=== PATIENT | female | born 1985 | race Caucasian/White ===

== ENCOUNTER → 2016-06-30 | Outpatient (CLI) | payer BC | END | disposition home or self-care (01) | LOC: MW.CHOBGYN 13:48 | PROVIDERS: ATTEND Obstetrics & Gynecology | DX: N93.8 Other specified abnormal uterine and vaginal bleeding (principal); R53.83 Other fatigue | CPT/HCPCS: 36415; 85014; 85018 ==

== ENCOUNTER 2017-04-29 12:10 | Inpatient (IN) | payer BC ==
[2017-04-29] MEDS ORDERED: Water For Irrigation,Sterile 1,000 ML Container IRR PRN ×2 (12:55)
[2017-04-29] MEDS ORDERED: Carboprost Tromethamine 250 MCG/1 ML Amp IM PRN ×2 (12:55)
[2017-04-29] MEDS ORDERED: Methylergonovine 0.2 MG/1 ML Amp IM PRN ×2 (12:55)
[2017-04-29] MEDS ORDERED: Lidocaine 1% 50 ML MDV INJECT PRN ×2 (12:55)
[2017-04-29] MEDS ORDERED: Misoprostol 200 MCG Tab PO PRN ×2 (12:55)
[2017-04-29] MEDS ORDERED: Sodium Chloride 0.9% 10 ML Syringe FLUSH PRN (12:55)
[2017-04-29] MEDS ORDERED: Sodium Chloride 0.9% 2.5 ML Syringe FLUSH PRN (12:55)
[2017-04-29] MEDS ORDERED: Nalbuphine 10 MG/1 ML Vial IVPUSH PRN ×2 (12:55)
[2017-04-29] MEDS ORDERED: Butorphanol 1 MG/ML SDV IVPUSH PRN (12:55)
[2017-04-29] MEDS ORDERED: Lactated Ringers 1,000 ML IV SCH (13:00)
[2017-04-29] MEDS ORDERED: Oxytocin/0.9 % Sodium Chloride 30 UNIT/500 ML BAG IV SCH (13:00)
[2017-04-29] MEDS ORDERED: Terbutaline 1 MG/ML SDV SUBCUT PRN (13:20)
[2017-04-29] MEDS ORDERED: Misoprostol 25 MCG (1/4 of 100 MCG) Tab PO ONE (13:22)
--- NOTE | 2017-04-29 13:38 | PCM.LDHP ---
L&D History of Present Illness - General Date of Service: 04/29/17 Admit Problem/Dx: Patient Status Order with Admit Dx/Problem 04/29/17 12:22 Patient Status [ADT] Routine 04/29/17 12:55 Patient Status [ADT] Routine Admission Diagnosis/Problem Admission Diagnosis/Problem Source of Information: Patient History Limitations: Reports: No Limitations - History of Present Illness Improves with: Reports: None Worsens with: Reports: None Associated Symptoms: Reports: N - Related Data Allergies/Adverse Reactions: Allergies Allergy/AdvReac Type Severity Reaction Status Date / Time No Known Allergies Allergy Verified 01/20/17 11:56 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: Psychiatric History: Reports: Depression Endocrine/Metabolic History: Reports: Other (See Below) Other Endocrine/Metabolic History: hypoglycemia Social & Family History - Tobacco Use Smoking Status *Q: Never Smoker Second Hand Smoke Exposure: No H&P Review of Systems - Review of Systems: Review Of Systems: See Below General: Reports: No Symptoms HEENT: Reports: No Symptoms Pulmonary: Reports: No Symptoms Cardiovascular: Reports: No Symptoms Gastrointestinal: Reports: No Symptoms Genitourinary: Reports: No Symptoms Musculoskeletal: Reports: No Symptoms Skin: Reports: No Symptoms Psychiatric: Reports: No Symptoms Neurological: Reports: No Symptoms Hematologic/Lymphatic: Reports: No Symptoms Immunologic: Reports: No Symptoms L&D Exam - Exam Exam: See Below - Vital Signs Weight: 98.43 kg - OB Specific Fundal Height In cm: 37 Contraction Intensity: Mild Movement: Active Heart Tones: Present Presentation: Vertex - Canela Score Canela Score Cervix Position: Midposition Canela Score Consistency: Soft Canela Score Effacement: 51-70% Canela Score Dilation: 1-2 cm Canela Score 's Station: -3 Canela Score Total: 6 - Exam General: Alert, Oriented HEENT: PERRLA, Conjunctiva Clear, EACs Clear, EOMI, Hearing Intact, Mucosa Moist & [place], Nares Patent, Normal Nasal Septum, Posterior Pharynx Clear, TMs Clear Neck: Supple, Trachea Midline Lungs: Clear to Auscultation, Normal Respiratory Effort Cardiovascular: Regular Rate, Regular Rhythm GI/Abdominal Exam: Normal Bowel Sounds, Soft, Non-Tender, No Organomegaly, No Distention, No Abnormal Bruit, No Mass, Pelvis Stable Rectal Exam: Normal Exam, Normal Rectal Tone Genitourinary: Normal external exam, Normal bimanual exam, Normal speculum exam Back Exam: Normal Inspection, Full Range of Motion Extremities: Normal Inspection, Normal Range of Motion, Non-Tender, No Pedal Edema, Normal Capillary Refill Skin: Warm, Dry, Intact Neurological: Cranial Nerves Intact, Reflexes Equal Bilateral Psychiatric: Alert, Normal Affect, Normal Mood - Patient Data Lab Results Last 24 hrs: Laboratory Results - last 24 hr 04/29/17 Range/Units 13:12 WBC 8.71 (4.0-11.0) K/uL RBC 3.95 L (4.30-5.90) M/uL Hgb 13.2 (12.0-16.0) g/dL Hct 36.7 (36.0-46.0) % MCV 92.9 (80.0-98.0) fL MCH 33.4 H (27.0-32.0) pg MCHC 36.0 (31.0-37.0) g/dL RDW Std Deviation 43.8 (28.0-62.0) fl RDW Coeff of Kadie 13 (11.0-15.0) % Plt Count 106 L (150-400) K/uL MPV 11.30 (7.40-12.00) fL Nucleated RBC % 0.0 /100WBC Nucleated RBCs # 0 K/uL Result Diagrams: 04/29/17 13:12 Problem List Initiated/Reviewed/Updated: Yes Orders Last 24hrs: Active Orders 24 hr Category Date Time Status Patient Status [ADT] Routine ADT 04/29/17 12:55 Active Bedrest Bathroom Privileges [RC] ASDIRECTED Care 04/29/17 13:20 Active Communication Order [RC] ASDIRECTED Care 04/29/17 13:20 Active Communication Order [RC] ASDIRECTED Care 04/29/17 13:20 Active Communication Order [RC] ASDIRECTED Care 04/29/17 13:20 Active Heart Tones [RC] CONTINUOUS Care 04/29/17 12:55 Inactive Heart Tones [RC] CONTINUOUS Care 04/29/17 12:55 Inactive Non Stress Test [RC] PER UNIT ROUTINE Care 04/29/17 12:22 Inactive Non Stress Test [RC] PER UNIT ROUTINE Care 04/29/17 12:55 Active Non Stress Test [RC] PER UNIT ROUTINE Care 04/29/17 12:55 Inactive May Shower [RC] ASDIRECTED Care 04/29/17 12:55 Active May Shower [RC] ASDIRECTED Care 04/29/17 12:55 Inactive Notify Provider [RC] PRN Care 04/29/17 12:55 Active Notify Provider [RC] PRN Care 04/29/17 12:55 Inactive Notify Provider [RC] PRN Care 04/29/17 13:20 Active Notify Provider [RC] STAT Care 04/29/17 13:20 Active Oxygen Therapy [RC] ASDIRECTED Care 04/29/17 13:20 Active Up ad Latricia [RC] ASDIRECTED Care 04/29/17 12:22 Inactive Up ad Latricia [RC] ASDIRECTED Care 04/29/17 12:55 Active Up ad Latricia [RC] ASDIRECTED Care 04/29/17 12:55 Inactive Vaginal Exam [RC] Click to Edit Care 04/29/17 12:22 Inactive Vaginal Exam [RC] PRN Care 04/29/17 12:55 Active Vaginal Exam [RC] PRN Care 04/29/17 12:55 Inactive Vaginal Exam [RC] PRN Care 04/29/17 13:20 Active Vital Signs [RC] PER UNIT ROUTINE Care 04/29/17 12:22 Inactive Vital Signs [RC] PER UNIT ROUTINE Care 04/29/17 12:55 Active Vital Signs [RC] PER UNIT ROUTINE Care 04/29/17 12:55 Inactive Vital Signs [RC] PER UNIT ROUTINE Care 04/29/17 13:20 Active Regular Diet [DIET] Diet 04/29/17 Dinner Active TYPE AND SCREEN [BBK] Routine Lab 04/29/17 13:12 Received Butorphanol [Stadol] Med 04/29/17 12:55 Active 1 mg IVPUSH Q1H PRN Carboprost Tromethamine [Hemabate DS] Med 04/29/17 12:55 Active 250 mcg IM ASDIRECTED PRN Lactated Ringers [Ringers, Lactated] 1,000 ml Med 04/29/17 13:00 Active IV ASDIRECTED Lidocaine 1% [Xylocaine 1%] Med 04/29/17 12:55 Active 50 ml INJECT .ONCE PRN Methylergonovine [Methergine] Med 04/29/17 12:55 Active 0.2 mg IM ASDIRECTED PRN Misoprostol [Cytotec] Med 04/29/17 12:55 Active 200 mcg PO .ONCE PRN Misoprostol [Cytotec] Med 04/29/17 13:30 Active 25 mcg VAG .ONCE Misoprostol [Cytotec] Med 04/29/17 13:20 Active 25 mcg VAG Q4H PRN Nalbuphine [Nubain] Med 04/29/17 12:55 Active 10 mg IVPUSH Q1H PRN Oxytocin/0.9 % Sodium Chloride [Oxytocin 30 Unit/500 ML Med 04/29/17 13:00 Active -NS] 30 unit in 500 ml IV TITRATE Sodium Chloride 0.9% [Saline Flush] Med 04/29/17 12:55 Active 10 ml FLUSH ASDIRECTED PRN Terbutaline [Brethine] Med 04/29/17 13:20 Active 0.25 mg SUBCUT ASDIRECTED PRN Water For Irrigation,Sterile [Sterile Water for Med 04/29/17 12:55 Active Irrigation] 1,000 ml IRR ASDIRECTED PRN Scalp Electrode [WOMSER] Per Unit Routine Oth 04/29/17 12:55 Ordered Peripheral IV Insertion Adult [OM.PC] Routine Oth 04/29/17 12:55 Ordered Resuscitation Status Routine Resus Stat 04/29/17 12:22 Ordered Medication Orders Butorphanol Tartrate (Stadol) 1 mg IVPUSH Q1H PRN PRN Reason: Pain Carboprost Tromethamine (Hemabate Ds) 250 mcg IM ASDIRECTED PRN PRN Reason: Post Hemorrhage Oxytocin/Sodium Chloride (Oxytocin 30 Unit/500 Ml-Ns) 30 unit in 500 mls @ 500 mls/hr IV TITRATE REINA Lactated Ringer's (Ringers, Lactated) 1,000 mls @ 150 mls/hr IV ASDIRECTED REINA Lidocaine HCl (Xylocaine 1%) 50 ml INJECT .ONCE PRN PRN Reason: Laceration repair Methylergonovine Maleate (Methergine) 0.2 mg IM ASDIRECTED PRN PRN Reason: Post Hemorrhage Misoprostol (Cytotec) 200 mcg PO .ONCE PRN PRN Reason: Post Hemorrhage Misoprostol (Cytotec) 25 mcg VAG .ONCE REINA Misoprostol (Cytotec) 25 mcg VAG Q4H PRN PRN Reason: Cervical Ripening Nalbuphine HCl (Nubain) 10 mg IVPUSH Q1H PRN PRN Reason: Pain (severe 7-10) Sodium Chloride (Saline Flush) 10 ml FLUSH ASDIRECTED PRN PRN Reason: Keep Vein Open Sterile Water (Sterile Water For Irrigation) 1,000 ml IRR ASDIRECTED PRN PRN Reason: delivery Terbutaline Sulfate (Brethine) 0.25 mg SUBCUT ASDIRECTED PRN PRN Reason: Tacysystole Assessment/Plan Comment:: Term GPS is status is negative admitted with that confirmed spontaneous rupture of membrane at 8:00 this morning. Cervical examination she is 1 cm 70% vertex and -3 the presenting position is confirmed by ultrasound. We will admit the patient and we are start induction with Cytotec in accordance with the protocol
[2017-04-29] MEDS: Misoprostol 25 MCG (1/4 of 100 MCG) Tab VAG SCH (13:49)
[2017-04-29] MEDS: Misoprostol 25 MCG (1/4 of 100 MCG) Tab PO PRN ×2 (18:36→23:04)
[2017-04-29] MEDS: Misoprostol 25 MCG (1/4 of 100 MCG) Tab VAG PRN ×2 (18:36→23:05)
[2017-04-30] MEDS: Butorphanol 1 MG/ML SDV IVPUSH PRN ×2 (01:48→03:35)
[2017-04-30] MEDS: Misoprostol 25 MCG (1/4 of 100 MCG) Tab PO PRN (02:57)
[2017-04-30] MEDS: Misoprostol 25 MCG (1/4 of 100 MCG) Tab VAG SCH (02:57)
[2017-04-30] MEDS: Lactated Ringers 1,000 ML IV SCH ×3 (07:26→16:32)
[2017-04-30] MEDS ORDERED: Ondansetron 4 MG/2 ML SDV IVPUSH ONE (07:26)
[2017-04-30] MEDS ORDERED: Oxytocin/0.9 % Sodium Chloride 30 UNIT/500 ML BAG IV SCH (07:30)
[2017-04-30] MEDS ORDERED: fentaNYL 100 MCG/2 ML SDV ONE ×3 (07:41→17:42)
[2017-04-30] MEDS ORDERED: Ropivacaine 100 ML ONE (07:42)
--- NOTE | 2017-04-30 07:55 | PCM.PREANE ---
Preanesthetic Assessment - Anesthesia/Transfusion/Family Hx Anesthesia History: Prior Anesthesia Without Reaction Family History of Anesthesia Reaction: No Transfusion History: No Prior Transfusion(s) - Review of Systems General: No Symptoms Pulmonary: No Symptoms Cardiovascular: No Symptoms Gastrointestinal: No Symptoms Neurological: No Symptoms Other: Reports: None - Physical Assessment NPO Status Date: 04/30/17 NPO Status Time: 07:51 (sips/chips) Blood Pressure: 120/86 Height: 5 ft 8.5 in Weight: 217 lb 0.015 oz ASA Class: 2 Mental Status: Alert & Oriented x3 Airway Class: Mallampati = 2 Dentition: Reports: Normal Dentition Thyro-Mental Finger Breadths: 3 Mouth Opening Finger Breadths: 3 ROM/Head Extension: Full Lungs: Clear to Auscultation, Normal Respiratory Effort Cardiovascular: Regular Rate, Regular Rhythm - Lab Values: Laboratory Last Values WBC 8.71 K/uL (4.0-11.0) 04/29/17 13:12 RBC 3.95 M/uL (4.30-5.90) L 04/29/17 13:12 Hgb 13.2 g/dL (12.0-16.0) 04/29/17 13:12 Hct 36.7 % (36.0-46.0) 04/29/17 13:12 MCV 92.9 fL (80.0-98.0) 04/29/17 13:12 MCH 33.4 pg (27.0-32.0) H 04/29/17 13:12 MCHC 36.0 g/dL (31.0-37.0) 04/29/17 13:12 RDW Std Deviation 43.8 fl (28.0-62.0) 04/29/17 13:12 RDW Coeff of Kadie 13 % (11.0-15.0) 04/29/17 13:12 Plt Count 106 K/uL (150-400) L 04/29/17 13:12 MPV 11.30 fL (7.40-12.00) 04/29/17 13:12 Nucleated RBC % 0.0 /100WBC 04/29/17 13:12 Nucleated RBCs # 0 K/uL 04/29/17 13:12 Blood Type O POSITIVE 04/29/17 13:12 Antibody Screen NEGATIVE 04/29/17 13:12 - Allergies Allergies/Adverse Reactions: Allergies Allergy/AdvReac Type Severity Reaction Status Date / Time No Known Allergies Allergy Verified 01/20/17 11:56 - Blood Blood Available: No Product(s) Available: None - Anesthesia Plan Free Text/Narrative:: Labor Epidural - awaiting a repeated platelet count - Acknowledgements Anesthesia Type Planned: Epidural Pt an Appropriate Candidate for the Planned Anesthesia: Yes Alternatives and Risks of Anesthesia Discussed w Pt/Guardian: Yes Pt/Guardian Understands and Agrees with Anesthesia Plan: Yes 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: Psychiatric History: Reports: Depression Endocrine/Metabolic History: Reports: Other (See Below) Other Endocrine/Metabolic History: hypoglycemia Hematologic History: Reports: Idiopathic Thrombocytopenia (low platelets thru 106k yesterday - rechecking prior to epidural) - SUBSTANCE USE Smoking Status *Q: Never Smoker Second Hand Smoke Exposure: No - CURRENT (IN HOUSE) MEDS Current Meds: Current Medications Butorphanol Tartrate (Stadol) 1 mg IVPUSH Q1H PRN PRN Reason: Pain Last Admin: 04/30/17 03:35 Dose: 1 mg Carboprost Tromethamine (Hemabate Ds) 250 mcg IM ASDIRECTED PRN PRN Reason: Post Hemorrhage Oxytocin/Sodium Chloride (Oxytocin 30 Unit/500 Ml-Ns) 30 unit in 500 mls @ 500 mls/hr IV TITRATE REINA Lactated Ringer's (Ringers, Lactated) 1,000 mls @ 150 mls/hr IV ASDIRECTED REINA Last Admin: 04/30/17 07:26 Dose: 999 mls/hr Oxytocin/Sodium Chloride (Oxytocin 30 Unit/500 Ml-Ns) 30 unit in 500 mls @ 2 mls/hr IV TITRATE REINA; 2 MUNITS/MIN PRN Reason: Protocol Lidocaine HCl (Xylocaine 1%) 50 ml INJECT .ONCE PRN PRN Reason: Laceration repair Methylergonovine Maleate (Methergine) 0.2 mg IM ASDIRECTED PRN PRN Reason: Post Hemorrhage Misoprostol (Cytotec) 200 mcg PO .ONCE PRN PRN Reason: Post Hemorrhage Misoprostol (Cytotec) 25 mcg VAG .ONCE REINA Last Admin: 04/30/17 02:57 Dose: 25 mcg Misoprostol (Cytotec) 25 mcg VAG Q4H PRN PRN Reason: Cervical Ripening Last Admin: 04/29/17 23:05 Dose: 25 mcg Misoprostol (Cytotec) 25 mcg PO Q4H PRN PRN Reason: Other Last Admin: 04/30/17 02:57 Dose: 25 mcg Nalbuphine HCl (Nubain) 10 mg IVPUSH Q1H PRN PRN Reason: Pain (severe 7-10) Sodium Chloride (Saline Flush) 10 ml FLUSH ASDIRECTED PRN PRN Reason: Keep Vein Open Sterile Water (Sterile Water For Irrigation) 1,000 ml IRR ASDIRECTED PRN PRN Reason: delivery Terbutaline Sulfate (Brethine) 0.25 mg SUBCUT ASDIRECTED PRN PRN Reason: Tacysystole Discontinued Medications Butorphanol Tartrate (Stadol) 1 mg IVPUSH Q1H PRN PRN Reason: Pain Carboprost Tromethamine (Hemabate Ds) 250 mcg IM ASDIRECTED PRN PRN Reason: Post Hemorrhage Fentanyl (Sublimaze) Confirm Administered Dose 100 mcg .ROUTE .STK-MED ONE Stop: 04/30/17 07:42 Lactated Ringer's (Ringers, Lactated) 1,000 mls @ 150 mls/hr IV ASDIRECTED REINA Ropivacaine (Naropin 0.2%) Confirm Administered Dose 100 mls @ as directed .ROUTE .STK-MED ONE Stop: 04/30/17 07:43 Lidocaine HCl (Xylocaine 1%) 50 ml INJECT .ONCE PRN PRN Reason: Laceration repair Methylergonovine Maleate (Methergine) 0.2 mg IM ASDIRECTED PRN PRN Reason: Post Hemorrhage Misoprostol (Cytotec) 200 mcg PO .ONCE PRN PRN Reason: Post Hemorrhage Misoprostol (Cytotec) 25 mcg PO ONETIME ONE Stop: 04/29/17 13:23 Last Admin: 04/29/17 13:46 Dose: 25 mcg Nalbuphine HCl (Nubain) 10 mg IVPUSH Q1H PRN PRN Reason: Pain (severe 7-10) Ondansetron HCl (Zofran) 4 mg IVPUSH ONETIME ONE Stop: 04/30/17 07:27 Sodium Chloride (Saline Flush) 2.5 ml FLUSH ASDIRECTED PRN PRN Reason: Keep Vein Open Sterile Water (Sterile Water For Irrigation) 1,000 ml IRR ASDIRECTED PRN PRN Reason: delivery
[2017-04-30] MEDS ORDERED: Ampicillin 2 GM in Sodium Chloride 0.9% 100 ML IV ONE (08:30)
[2017-04-30] MEDS: Ampicillin 1 GM in Sodium Chloride 0.9% 50 ML IV SCH ×2 (12:31→16:31)
[2017-04-30] MEDS ORDERED: Ondansetron 4 MG/2 ML SDV IVPUSH PRN ×2 (15:18→18:44)
[2017-04-30] MEDS ORDERED: Acetaminophen 500 MG Tab PO ONE (15:20)
[2017-04-30] MEDS ORDERED: Morphine PF 1 MG/ML Amp ONE (15:24)
[2017-04-30] MEDS ORDERED: Bupivacaine 0.5% 10 ML SDV ONE ×2 (17:30→17:43)
[2017-04-30] MEDS ORDERED: Oxytocin/0.9 % Sodium Chloride 30 UNIT/500 ML BAG ONE (17:30)
[2017-04-30] MEDS ORDERED: Phenylephrine/Normal Saline 100 MCG/ML 10 ML Syringe ONE (18:05)
[2017-04-30] MEDS ORDERED: Ondansetron 4 MG/2 ML SDV ONE (18:30)
[2017-04-30] MEDS ORDERED: Octyl 2-Cyanoacrylate 1 Tube ONE (18:33)
[2017-04-30] MEDS ORDERED: Lanolin 100% Cream 7 GM Tube TOP PRN (18:44)
[2017-04-30] MEDS ORDERED: Acetaminophen/oxyCODONE 325-5 MG Tab PO PRN ×3 (18:44→19:12)
[2017-04-30] MEDS ORDERED: Bisacodyl 10 MG Supp RECTAL PRN (18:44)
[2017-04-30] MEDS ORDERED: diphenhydrAMINE 50 MG/ML SDV IVPUSH PRN (18:44)
[2017-04-30] MEDS ORDERED: Lactated Ringers 1,000 ML IV SCH (18:45)
--- NOTE | 2017-04-30 18:48 | PCM.OPNOTE ---
- General Post-Op/Procedure Note Date of Surgery/Procedure: 04/30/17 Operative Procedure(s): Primary C/section Pre Op Diagnosis: IUP 38+5 SROM faild induction Post-Op Diagnosis: Same Anesthesia Technique: Epidural Primary Surgeon: Colby Aguilar EBL in mLs: 650 Complications: None Condition: Good
[2017-04-30] MEDS ORDERED: Naloxone 0.4 MG/ML Syringe IVPUSH PRN (19:12)
[2017-04-30] MEDS ORDERED: Nalbuphine 10 MG/1 ML Vial IVPUSH PRN (19:12)
[2017-04-30] MEDS: Ketorolac 30 MG/ML SDV IVPUSH SCH (19:23)
--- NOTE | 2017-04-30 19:34 | PCM.POSTAN ---
POST ANESTHESIA ASSESSMENT - MENTAL STATUS Mental Status: Alert, Oriented - VITAL SIGNS Pulse Rate: 91 SaO2: 98 Resp Rate: 17 Blood Pressure: 107/53 - RESPIRATORY Respiratory Status: Respiratory Rate WNL, Airway Patent, O2 Saturation Stable - CARDIOVASCULAR CV Status: Pulse Rate WNL, Blood Pressure Stable - GASTROINTESTINAL GI Status: No Symptoms - PAIN Pain Score: 0 (Epidural Level still T7, but no tingling in hands or difficulty breathing) - POST OP HYDRATION Hydration Status: Adequate & Stable - OBSERVATIONS Free Text/Narrative:: Pt's epidural did get high during the case despite a low dose. The level has resolved down to T7 and pt has no complaints at this time. VSS.
[2017-04-30] MEDS: Docusate Sodium 100 MG Cap PO SCH (22:15)
--- NOTE | 2017-04-30 22:45 | OR ---
SURGEON: Colby Aguilar MD DATE OF PROCEDURE: PREOPERATIVE DIAGNOSIS: Intrauterine 38+ 5, spontaneous rupture of the membrane, failed induction. POSTOPERATIVE DIAGNOSIS: Intrauterine 38+ 5, spontaneous rupture of the membrane, failed induction. OPERATION PERFORMED: Primary low transverse section. SAILOR: OR tech. WARD NURSE: Dr. Carcamo. ANESTHESIA: Epidural, Narcisa Mccurdy and Dr. Swan. ESTIMATED BLOOD LOSS: 650 mL. COMPLICATIONS: None. FINDINGS: Female fetus. score reported to be 8 and 9. Weight is not available. Normal uterus, tubes, and ovaries. INDICATION FOR SURGERY: This patient is 31. She is primigravida. She is followed in our clinic primarily by me. She is admitted with spontaneous rupture of membrane. At the time of admission, she was 1 cm dilated. She is induced with Cytotec and Pitocin. She did not respond well to the induction, and after 36 hours of induction, the patient was still about 4 cm vertex and -3. The patient started spiking fever, tachycardia. Decision is made to do primary low transverse section. PROCEDURE IN DETAIL: The patient was brought to the OR, properly identified with a Gomez catheter in the bladder. An adequate level of epidural anesthesia. A low transverse Pfannenstiel skin incision was done. Sophie's fascia rectus fascia was opened in direction of the incision. The 2 recti muscles were . Peritoneal cavity was entered. Bladder flap was raised in the usual manner pushing the bladder away from the lower uterine segment. Low transverse uterine incision was done and extended manually with the hand and fetus was in a vertex position, delivered without any problem. Dr. Carcamo, the burn nurse, was present at the delivery. The fetus cried immediately. score reported to be 8 and 9. The placenta delivered spontaneous, complete, and intact and repair of the lower uterine segment was done with 2-0 Vicryl continuous interlocking in 2 layers. Reperitonealization done with 3-0 Vicryl continuous and then the peritoneal cavity evacuated completely from all blood and blood clot and closed with 3-0 Vicryl continuous. The rectus fascia closed with #1 PDS double strand continuous. The Sophie's fascia with 3-0 Vicryl continuous. Skin closed with skin clips, Insorb, and Dermabond. Instrument and sponge count were correct. The patient tolerated the procedure well, went to recovery room in stable general condition. EDIN / TRAE /[id number]
[2017-05-01] MEDS: Ketorolac 30 MG/ML SDV IVPUSH SCH ×4 (00:32→18:11)
[2017-05-01] MEDS: Ampicillin 1 GM in Sodium Chloride 0.9% 50 ML IV SCH ×5 (02:17→18:11)
--- NOTE | 2017-05-01 07:47 | PCM48HPAN ---
Post Anesthesia Note - EVALUATION WITHIN 48HRS OF ANESTHETIC Vital Signs in Normal Range: Yes Patient Participated in Evaluation: Yes Respiratory Function Stable: Yes Airway Patent: Yes Cardiovascular Function Stable: Yes Hydration Status Stable: Yes Pain Control Satisfactory: Yes Nausea and Vomiting Control Satisfactory: Yes Mental Status Recovered: Yes - COMMENTS/OBSERVATIONS Free Text/Narrative:: Pt sitting up in bed with no complaints this AM. Pt did have one episode of nausea and decreased BP last night, but she states it was associated with sitting up to breastfeed and resolved shortly after. No other problems after that incident. Pt did say that her sister had a very similar experience as far as epidural dosed for that went high - presumably something anatomic that makes the space smaller than normal, therefore a normal dose travels much higher? Pt encouraged to inform anesthesia for any future anesthesia procedures.
--- NOTE | 2017-05-01 09:10 | PCM.SURGPN ---
- General Info Date of Service: 05/01/17 POD#: 1 Functional Status: Reports: Pain Controlled - Review of Systems General: Reports: No Symptoms HEENT: Reports: No Symptoms Pulmonary: Reports: No Symptoms Cardiovascular: Reports: No Symptoms Gastrointestinal: Reports: No Symptoms Genitourinary: Reports: No Symptoms Musculoskeletal: Reports: No Symptoms Skin: Reports: No Symptoms Neurological: Reports: No Symptoms Psychiatric: Reports: No Symptoms - Patient Data Vitals - Most Recent: Last Vital Signs Temp 36.2 C 05/01/17 04:35 Pulse 83 05/01/17 04:35 Resp 18 05/01/17 06:29 BP 112/70 05/01/17 04:35 Pulse Ox 99 05/01/17 06:29 Weight - Most Recent: 98.43 kg I&O - Last 24 Hours: Intake & Output 04/30/17 05/01/17 05/01/17 22:59 06:59 14:59 Intake Total 2400 Output Total 700 Balance 1700 Lab Results Last 24 Hrs: Laboratory Results - last 24 hr 05/01/17 Range/Units 06:17 Hgb 9.4 L (12.0-16.0) g/dL Hct 26.1 L (36.0-46.0) % Med Orders - Current: Current Medications Bisacodyl (Dulcolax) 10 mg RECTAL .ONCE PRN PRN Reason: Constipation Butorphanol Tartrate (Stadol) 1 mg IVPUSH Q1H PRN PRN Reason: Pain Last Admin: 04/30/17 03:35 Dose: 1 mg Carboprost Tromethamine (Hemabate Ds) 250 mcg IM ASDIRECTED PRN PRN Reason: Post Hemorrhage Diphenhydramine HCl (Benadryl) 25 mg IVPUSH Q6H PRN PRN Reason: Itching or Nausea Last Admin: 04/30/17 21:08 Dose: 25 mg Docusate Sodium (Colace) 100 mg PO BID [facility] Last Admin: 04/30/17 22:15 Dose: Not Given Emollient Ointment (Lansinoh Hpa) 0 gm TOP ASDIRECTED PRN PRN Reason: Sore Nipples Oxytocin/Sodium Chloride (Oxytocin 30 Unit/500 Ml-Ns) 30 unit in 500 mls @ 500 mls/hr IV TITRATE [facility] Lactated Ringer's (Ringers, Lactated) 1,000 mls @ 150 mls/hr IV ASDIRECTED [facility] Last Admin: 04/30/17 16:32 Dose: 150 mls/hr Oxytocin/Sodium Chloride (Oxytocin 30 Unit/500 Ml-Ns) 30 unit in 500 mls @ 2 mls/hr IV TITRATE [facility]; 2 MUNITS/MIN PRN Reason: Protocol Last Infusion: 04/30/17 14:18 Dose: 16 munits/min, 16 mls/hr Ampicillin Sodium 1 gm/ Sodium (Chloride) 50 mls @ 100 mls/hr IV Q4H [facility] Last Admin: 05/01/17 07:18 Dose: Not Given Lactated Ringer's (Ringers, Lactated) 1,000 mls @ 125 mls/hr IV ASDIRECTED [facility] Ibuprofen (Motrin) 800 mg PO Q8H PRN PRN Reason: mild pain or fever Ketorolac Tromethamine (Toradol) 30 mg IVPUSH Q6H [facility] Stop: 05/01/17 18:46 Last Admin: 05/01/17 06:29 Dose: 30 mg Lidocaine HCl (Xylocaine 1%) 50 ml INJECT .ONCE PRN PRN Reason: Laceration repair Methylergonovine Maleate (Methergine) 0.2 mg IM ASDIRECTED PRN PRN Reason: Post Hemorrhage Misoprostol (Cytotec) 200 mcg PO .ONCE PRN PRN Reason: Post Hemorrhage Misoprostol (Cytotec) 25 mcg VAG .ONCE [facility] Last Admin: 04/30/17 02:57 Dose: 25 mcg Misoprostol (Cytotec) 25 mcg VAG Q4H PRN PRN Reason: Cervical Ripening Last Admin: 04/29/17 23:05 Dose: 25 mcg Misoprostol (Cytotec) 25 mcg PO Q4H PRN PRN Reason: Other Last Admin: 04/30/17 02:57 Dose: 25 mcg Nalbuphine HCl (Nubain) 10 mg IVPUSH Q1H PRN PRN Reason: Pain (severe 7-10) Nalbuphine HCl (Nubain) 2.5 mg IVPUSH Q3H PRN PRN Reason: Pruritis Stop: 05/01/17 19:14 Naloxone HCl (Narcan) 0.1 mg IVPUSH ONETIME PRN PRN Reason: RR<6 WITH STIMULATION Stop: 05/01/17 19:14 Ondansetron HCl (Zofran) 4 mg IVPUSH .ONETIME PRN PRN Reason: Nausea Last Admin: 04/30/17 15:40 Dose: 4 mg Ondansetron HCl (Zofran) 4 mg IVPUSH Q4H PRN PRN Reason: Nausea/Vomiting Oxycodone/Acetaminophen (Percocet 325-5 Mg) 1 tab PO Q4H PRN PRN Reason: Pain (moderate 4-6) Oxycodone/Acetaminophen (Percocet 325-5 Mg) 2 tab PO Q4H PRN PRN Reason: Pain (moderate 4-6) Oxycodone/Acetaminophen (Percocet 325-5 Mg) 1 tab PO Q4H PRN PRN Reason: Breakthrough Pain Sodium Chloride (Saline Flush) 10 ml FLUSH ASDIRECTED PRN PRN Reason: Keep Vein Open Sterile Water (Sterile Water For Irrigation) 1,000 ml IRR ASDIRECTED PRN PRN Reason: delivery Terbutaline Sulfate (Brethine) 0.25 mg SUBCUT ASDIRECTED PRN PRN Reason: Tacysystole Discontinued Medications Acetaminophen (Tylenol Extra Strength) 1,000 mg PO ONETIME ONE Stop: 04/30/17 15:21 Last Admin: 04/30/17 15:40 Dose: 1,000 mg Bupivacaine HCl (Sensorcaine-Mpf 0.5%) Confirm Administered Dose 20 ml .ROUTE .STK-MED ONE Stop: 04/30/17 17:31 Last Admin: 05/01/17 07:17 Dose: Not Given Bupivacaine HCl (Sensorcaine-Mpf 0.5%) Confirm Administered Dose 20 ml .ROUTE .STK-MED ONE Stop: 04/30/17 17:44 Last Admin: 05/01/17 07:18 Dose: Not Given Butorphanol Tartrate (Stadol) 1 mg IVPUSH Q1H PRN PRN Reason: Pain Carboprost Tromethamine (Hemabate Ds) 250 mcg IM ASDIRECTED PRN PRN Reason: Post Hemorrhage Fentanyl (Sublimaze) Confirm Administered Dose 100 mcg .ROUTE .STK-MED ONE Stop: 04/30/17 07:42 Last Admin: 04/30/17 08:52 Dose: Not Given Fentanyl (Sublimaze) Confirm Administered Dose 100 mcg .ROUTE .STK-MED ONE Stop: 04/30/17 17:32 Last Admin: 05/01/17 07:17 Dose: Not Given Fentanyl (Sublimaze) Confirm Administered Dose 100 mcg .ROUTE .STK-MED ONE Stop: 04/30/17 17:43 Last Admin: 05/01/17 07:17 Dose: Not Given Lactated Ringer's (Ringers, Lactated) 1,000 mls @ 150 mls/hr IV ASDIRECTED [facility] Ropivacaine (Naropin 0.2%) Confirm Administered Dose 100 mls @ as directed .ROUTE .[facility]-MED ONE Stop: 04/30/17 07:43 Last Admin: 04/30/17 08:52 Dose: Not Given Ampicillin Sodium 2 gm/ Sodium (Chloride) 100 mls @ 200 mls/hr IV ONETIME ONE Stop: 04/30/17 08:59 Last Admin: 04/30/17 08:29 Dose: 200 mls/hr Oxytocin/Sodium Chloride (Oxytocin 30 Unit/500 Ml-Ns) Confirm Administered Dose 30 unit in 500 mls @ as directed .ROUTE .[facility] ONE Stop: 04/30/17 17:31 Last Admin: 05/01/17 07:17 Dose: Not Given Lidocaine HCl (Xylocaine 1%) 50 ml INJECT .ONCE PRN PRN Reason: Laceration repair Methylergonovine Maleate (Methergine) 0.2 mg IM ASDIRECTED PRN PRN Reason: Post Hemorrhage Misoprostol (Cytotec) 200 mcg PO .ONCE PRN PRN Reason: Post Hemorrhage Misoprostol (Cytotec) 25 mcg PO ONETIME ONE Stop: 04/29/17 13:23 Last Admin: 04/29/17 13:46 Dose: 25 mcg Morphine Sulfate (Duramorph Pf) Confirm Administered Dose 1 mg .ROUTE .STK-MED ONE Stop: 04/30/17 15:25 Nalbuphine HCl (Nubain) 10 mg IVPUSH Q1H PRN PRN Reason: Pain (severe 7-10) Octyl Cyanoacrylate (Dermabond Advance) Confirm Administered Dose 1 applic .ROUTE .STK-MED ONE Stop: 04/30/17 18:34 Ondansetron HCl (Zofran) 4 mg IVPUSH ONETIME ONE Stop: 04/30/17 07:27 Last Admin: 04/30/17 08:03 Dose: 4 mg Ondansetron HCl (Zofran) Confirm Administered Dose 4 mg .ROUTE .STK-MED ONE Stop: 04/30/17 18:31 Phenylephrine HCl (Phenylephrine In Ns 100 Mcg/Ml) Confirm Administered Dose 1 mg .ROUTE .STK-MED ONE Stop: 04/30/17 18:06 Sodium Chloride (Saline Flush) 2.5 ml FLUSH ASDIRECTED PRN PRN Reason: Keep Vein Open Sterile Water (Sterile Water For Irrigation) 1,000 ml IRR ASDIRECTED PRN PRN Reason: delivery - Exam Wound/Incisions: Healing Well General: Alert, Oriented HEENT: Pupils Equal Neck: Supple Lungs: Clear to Auscultation, Normal Respiratory Effort Cardiovascular: Regular Rate, Regular Rhythm GI/Abdominal Exam: Normal Bowel Sounds, Soft, Non-Tender, No Organomegaly, No Distention, No Abnormal Bruit, No Mass, Pelvis Stable Extremities: Normal Inspection, Normal Range of Motion, Non-Tender, No Pedal Edema, Normal Capillary Refill Skin: Warm, Dry, Intact Neurological: No New Focal Deficit Psy/Mental Status: Alert, Normal Affect, Normal Mood - Problem List Review Problem List Initiated/Reviewed/Updated: Yes - My Orders Last 24 Hours: Active Orders 24 hr Category Date Time Status Patient Status [ADT] Routine ADT 04/30/17 18:44 Active Ambulate [RC] PER UNIT ROUTINE Care 04/30/17 18:44 Active Antiembolic Devices [RC] PER UNIT ROUTINE Care 04/30/17 18:45 Active Bradycardia-Neuroaxis [employer] [RC] ROUTINE Care 04/30/17 19:12 Active Communication Order [RC] PER UNIT ROUTINE Care 04/30/17 18:44 Active Communication Order [RC] PER UNIT ROUTINE Care 04/30/17 18:44 Active Communication Order [RC] Per Unit Routine Care 04/30/17 18:44 Active Hypertension-Neuroaxis [employer] [RC] ROUTINE Care 04/30/17 19:12 Active Hypotension-Neuroaxis [employer] [RC] ROUTINE Care 04/30/17 19:12 Active May Shower [RC] ASDIRECTED Care 04/30/17 18:44 Active Oxygen Therapy [RC] PER UNIT ROUTINE Care 04/30/17 19:12 Active RT Incentive Spirometry [RC] Q2HWA Care 04/30/17 18:44 Active Vital Signs [RC] PER UNIT ROUTINE Care 04/30/17 18:44 Active Vital Signs [RC] Q1H Care 04/30/17 19:12 Active Acetaminophen/oxyCODONE [Percocet 325-5 MG] Med 04/30/17 18:44 Active 1 tab PO Q4H PRN Acetaminophen/oxyCODONE [Percocet 325-5 MG] Med 04/30/17 19:12 Active 1 tab PO Q4H PRN Acetaminophen/oxyCODONE [Percocet 325-5 MG] Med 04/30/17 18:44 Active 2 tab PO Q4H PRN Ampicillin 1 gm Med 04/30/17 12:30 Active Sodium Chloride 0.9% [Normal Saline] 50 ml IV Q4H Bisacodyl [Dulcolax] Med 04/30/17 18:44 Active 10 mg RECTAL .ONCE PRN Docusate Sodium [Colace] Med 04/30/17 21:00 Active 100 mg PO BID Ibuprofen [Motrin] Med 05/02/17 01:00 Active 800 mg PO Q8H PRN Ketorolac [Toradol] Med 04/30/17 18:45 Active 30 mg IVPUSH Q6H Lactated Ringers [Ringers, Lactated] 1,000 ml Med 04/30/17 18:45 Active IV ASDIRECTED Lanolin [Lansinoh HPA] Med 04/30/17 18:44 Active See Dose Instructions TOP ASDIRECTED PRN Nalbuphine [Nubain] Med 04/30/17 19:12 Active 2.5 mg IVPUSH Q3H PRN Naloxone [Narcan] Med 04/30/17 19:12 Active 0.1 mg IVPUSH ONETIME PRN Ondansetron [Zofran] Med 04/30/17 15:18 Active 4 mg IVPUSH .ONETIME PRN Ondansetron [Zofran] Med 04/30/17 18:44 Active 4 mg IVPUSH Q4H PRN diphenhydrAMINE [Benadryl] Med 04/30/17 18:44 Active 25 mg IVPUSH Q6H PRN AN Neuroaxis [employer] Precaution Reflex [OM.PC] PER Oth 04/30/17 19:15 Ordered UNIT ROUTINE AN Neuroaxis [employer] Precaution Reflex [OM.PC] PER Oth 05/01/17 19:15 Ordered UNIT ROUTINE Assess Lochia [WOMSER] Per Unit Routine Ot 04/30/17 18:44 Ordered Assess Uterine Involution [WOMSER] Per Unit Routine Oth 04/30/17 18:44 Ordered Breast Pump [WOMSER] Per Unit Routine Ot 04/30/17 18:44 Ordered Peripheral IV Discontinue [OM.PC] Routine Ot 04/30/17 18:44 Ordered Sequential Compression Device [OM.PC] Per Unit Routine Oth 04/30/17 18:44 Ordered Medication Orders Bisacodyl (Dulcolax) 10 mg RECTAL .ONCE PRN PRN Reason: Constipation Butorphanol Tartrate (Stadol) 1 mg IVPUSH Q1H PRN PRN Reason: Pain Last Admin: 04/30/17 03:35 Dose: 1 mg Admin: 04/30/17 01:48 Dose: 1 mg Carboprost Tromethamine (Hemabate Ds) 250 mcg IM ASDIRECTED PRN PRN Reason: Post Hemorrhage Diphenhydramine HCl (Benadryl) 25 mg IVPUSH Q6H PRN PRN Reason: Itching or Nausea Last Admin: 04/30/17 21:08 Dose: 25 mg Docusate Sodium (Colace) 100 mg PO BID [facility] Last Admin: 04/30/17 22:15 Dose: Not Given Emollient Ointment (Lansinoh Hpa) 0 gm TOP ASDIRECTED PRN PRN Reason: Sore Nipples Oxytocin/Sodium Chloride (Oxytocin 30 Unit/500 Ml-Ns) 30 unit in 500 mls @ 500 mls/hr IV TITRATE [facility] Lactated Ringer's (Ringers, Lactated) 1,000 mls @ 150 mls/hr IV ASDIRECTED [facility] Last Admin: 04/30/17 16:32 Dose: 150 mls/hr Infusion: 04/30/17 15:04 Dose: 150 mls/hr Admin: 04/30/17 08:23 Dose: 150 mls/hr Infusion: 04/30/17 08:23 Dose: 999 mls/hr Admin: 04/30/17 07:26 Dose: 999 mls/hr Oxytocin/Sodium Chloride (Oxytocin 30 Unit/500 Ml-Ns) 30 unit in 500 mls @ 2 mls/hr IV TITRATE [facility]; 2 MUNITS/MIN PRN Reason: Protocol Last Infusion: 04/30/17 14:18 Dose: 16 munits/min, 16 mls/hr Infusion: 04/30/17 13:51 Dose: 14 munits/min, 14 mls/hr Infusion: 04/30/17 13:20 Dose: 12 munits/min, 12 mls/hr Infusion: 04/30/17 12:11 Dose: 10 munits/min, 10 mls/hr Infusion: 04/30/17 09:36 Dose: 8 munits/min, 8 mls/hr Infusion: 04/30/17 09:21 Dose: 6 munits/min, 6 mls/hr Infusion: 04/30/17 09:02 Dose: 4 munits/min, 4 mls/hr Admin: 04/30/17 08:34 Dose: 2 munits/min, 2 mls/hr Ampicillin Sodium 1 gm/ Sodium (Chloride) 50 mls @ 100 mls/hr IV Q4H [facility] Last Admin: 05/01/17 07:18 Dose: Not Given Admin: 05/01/17 07:18 Dose: Not Given Admin: 05/01/17 02:17 Dose: Not Given Admin: 04/30/17 16:31 Dose: 100 mls/hr Infusion: 04/30/17 13:01 Dose: 100 mls/hr Admin: 04/30/17 12:31 Dose: 100 mls/hr Lactated Ringer's (Ringers, Lactated) 1,000 mls @ 125 mls/hr IV ASDIRECTED [facility] Ibuprofen (Motrin) 800 mg PO Q8H PRN PRN Reason: mild pain or fever Ketorolac Tromethamine (Toradol) 30 mg IVPUSH Q6H [facility] Stop: 05/01/17 18:46 Last Admin: 05/01/17 06:29 Dose: 30 mg Admin: 05/01/17 00:32 Dose: 30 mg Admin: 04/30/17 19:23 Dose: 30 mg Lidocaine HCl (Xylocaine 1%) 50 ml INJECT .ONCE PRN PRN Reason: Laceration repair Methylergonovine Maleate (Methergine) 0.2 mg IM ASDIRECTED PRN PRN Reason: Post Hemorrhage Misoprostol (Cytotec) 200 mcg PO .ONCE PRN PRN Reason: Post Hemorrhage Misoprostol (Cytotec) 25 mcg VAG .ONCE [facility] Last Admin: 04/30/17 02:57 Dose: 25 mcg Admin: 04/29/17 13:49 Dose: 25 mcg Misoprostol (Cytotec) 25 mcg VAG Q4H PRN PRN Reason: Cervical Ripening Last Admin: 04/29/17 23:05 Dose: 25 mcg Admin: 04/29/17 18:36 Dose: 25 mcg Misoprostol (Cytotec) 25 mcg PO Q4H PRN PRN Reason: Other Last Admin: 04/30/17 02:57 Dose: 25 mcg Admin: 04/29/17 23:04 Dose: 25 mcg Admin: 04/29/17 18:36 Dose: 25 mcg Nalbuphine HCl (Nubain) 10 mg IVPUSH Q1H PRN PRN Reason: Pain (severe 7-10) Nalbuphine HCl (Nubain) 2.5 mg IVPUSH Q3H PRN PRN Reason: Pruritis Stop: 05/01/17 19:14 Naloxone HCl (Narcan) 0.1 mg IVPUSH ONETIME PRN PRN Reason: RR<6 WITH STIMULATION Stop: 05/01/17 19:14 Ondansetron HCl (Zofran) 4 mg IVPUSH .ONETIME PRN PRN Reason: Nausea Last Admin: 04/30/17 15:40 Dose: 4 mg Ondansetron HCl (Zofran) 4 mg IVPUSH Q4H PRN PRN Reason: Nausea/Vomiting Oxycodone/Acetaminophen (Percocet 325-5 Mg) 1 tab PO Q4H PRN PRN Reason: Pain (moderate 4-6) Oxycodone/Acetaminophen (Percocet 325-5 Mg) 2 tab PO Q4H PRN PRN Reason: Pain (moderate 4-6) Oxycodone/Acetaminophen (Percocet 325-5 Mg) 1 tab PO Q4H PRN PRN Reason: Breakthrough Pain Sodium Chloride (Saline Flush) 10 ml FLUSH ASDIRECTED PRN PRN Reason: Keep Vein Open Sterile Water (Sterile Water For Irrigation) 1,000 ml IRR ASDIRECTED PRN PRN Reason: delivery Terbutaline Sulfate (Brethine) 0.25 mg SUBCUT ASDIRECTED PRN PRN Reason: Tacysystole - Assessment Assessment (Free Text/Narrative):: Status post section postoperative day #1 the patient is doing okay and we will follow the quadrilateral order planning for discharge in a.m.
[2017-05-01] MEDS: Docusate Sodium 100 MG Cap PO SCH ×2 (12:37→21:25)
[2017-05-02] MEDS: Ibuprofen 800 MG Tab PO PRN ×2 (01:25→09:30)
[2017-05-02] MEDS: Ampicillin 1 GM in Sodium Chloride 0.9% 50 ML IV SCH ×3 (01:26→07:13)
[2017-05-02] MEDS ORDERED: Acetaminophen 500 MG Tab PO PRN (07:25)
[2017-05-02] MEDS: Docusate Sodium 100 MG Cap PO SCH ×2 (07:33→09:14)
--- NOTE | 2017-05-02 11:26 | PCM.DCSUM1 ---
Discharge Summary - Hospital Course Free Text/Narrative:: Discharge home with infant. Follow up in 10 days for incision check and 6 weeks or sooner if needed. - Discharge Data Discharge Date: 05/02/17 Discharge Disposition: Home, Self-Care 01 Condition: Good - Patient Summary/Data Operative Procedure(s) Performed: Primary C/section - Patient Instructions Diet: Usual Diet as Tolerated Activity: As Tolerated, No Strenuous Activities, Rest and Relax Today Driving: May Drive Today Showering/Bathing: May Shower Wound/Incision Care: Keep Operative Site/Wound Site Clean and Dry Notify Provider of: Fever, Increased Pain, Swelling and Redness, Drainage, Nausea and/or Vomiting Other/Special Instructions: Discharge home with . Follow up in 10 days for incision check and 6 weeks or sooner if needed. - Discharge Plan Referrals: [facility] [Outside] Colby Aguilar MD [Physician] - (1 week- May 12@ 10:45am w/ 6 week- June 09 @ 1:30pm w/ ) - General Info Date of Service: 05/02/17 Admission Dx/Problem (Free Text: Patient Status Order with Admit Dx/Problem 04/29/17 12:22 Patient Status [ADT] Routine 04/29/17 12:55 Patient Status [ADT] Routine Admission Diagnosis/Problem Admission Diagnosis/Problem Functional Status: Reports: Pain Controlled, Tolerating Diet, Ambulating, Urinating - Review of Systems General: Reports: No Symptoms HEENT: Reports: No Symptoms Pulmonary: Reports: No Symptoms Cardiovascular: Reports: No Symptoms Gastrointestinal: Reports: No Symptoms Genitourinary: Reports: No Symptoms Musculoskeletal: Reports: No Symptoms Skin: Reports: No Symptoms Neurological: Reports: No Symptoms Psychiatric: Reports: No Symptoms - Patient Data Vitals - Most Recent: Last Vital Signs Temp 36.4 C 05/02/17 07:00 Pulse 68 05/02/17 07:00 Resp 14 05/02/17 07:00 BP 124/67 05/02/17 07:00 Pulse Ox 100 05/02/17 07:00 Weight - Most Recent: 98.43 kg Med Orders - Current: Current Medications Acetaminophen (Tylenol Extra Strength) 1,000 mg PO Q4H PRN PRN Reason: Pain Last Admin: 05/02/17 08:06 Dose: 1,000 mg Bisacodyl (Dulcolax) 10 mg RECTAL .ONCE PRN PRN Reason: Constipation Butorphanol Tartrate (Stadol) 1 mg IVPUSH Q1H PRN PRN Reason: Pain Last Admin: 04/30/17 03:35 Dose: 1 mg Carboprost Tromethamine (Hemabate Ds) 250 mcg IM ASDIRECTED PRN PRN Reason: Post Hemorrhage Diphenhydramine HCl (Benadryl) 25 mg IVPUSH Q6H PRN PRN Reason: Itching or Nausea Last Admin: 04/30/17 21:08 Dose: 25 mg Docusate Sodium (Colace) 100 mg PO BID [facility] Last Admin: 05/02/17 09:14 Dose: Not Given Emollient Ointment (Lansinoh Hpa) 0 gm TOP ASDIRECTED PRN PRN Reason: Sore Nipples Oxytocin/Sodium Chloride (Oxytocin 30 Unit/500 Ml-Ns) 30 unit in 500 mls @ 500 mls/hr IV TITRATE [facility] Lactated Ringer's (Ringers, Lactated) 1,000 mls @ 150 mls/hr IV ASDIRECTED [facility] Last Admin: 04/30/17 16:32 Dose: 150 mls/hr Oxytocin/Sodium Chloride (Oxytocin 30 Unit/500 Ml-Ns) 30 unit in 500 mls @ 2 mls/hr IV TITRATE [facility]; 2 MUNITS/MIN PRN Reason: Protocol Last Infusion: 04/30/17 14:18 Dose: 16 munits/min, 16 mls/hr Lactated Ringer's (Ringers, Lactated) 1,000 mls @ 125 mls/hr IV ASDIRECTED [facility] Ibuprofen (Motrin) 800 mg PO Q8H PRN PRN Reason: mild pain or fever Last Admin: 05/02/17 09:30 Dose: 800 mg Lidocaine HCl (Xylocaine 1%) 50 ml INJECT .ONCE PRN PRN Reason: Laceration repair Methylergonovine Maleate (Methergine) 0.2 mg IM ASDIRECTED PRN PRN Reason: Post Hemorrhage Misoprostol (Cytotec) 200 mcg PO .ONCE PRN PRN Reason: Post Hemorrhage Misoprostol (Cytotec) 25 mcg VAG .ONCE [facility] Last Admin: 04/30/17 02:57 Dose: 25 mcg Misoprostol (Cytotec) 25 mcg VAG Q4H PRN PRN Reason: Cervical Ripening Last Admin: 04/29/17 23:05 Dose: 25 mcg Misoprostol (Cytotec) 25 mcg PO Q4H PRN PRN Reason: Other Last Admin: 04/30/17 02:57 Dose: 25 mcg Nalbuphine HCl (Nubain) 10 mg IVPUSH Q1H PRN PRN Reason: Pain (severe 7-10) Ondansetron HCl (Zofran) 4 mg IVPUSH .ONETIME PRN PRN Reason: Nausea Last Admin: 04/30/17 15:40 Dose: 4 mg Ondansetron HCl (Zofran) 4 mg IVPUSH Q4H PRN PRN Reason: Nausea/Vomiting Oxycodone/Acetaminophen (Percocet 325-5 Mg) 1 tab PO Q4H PRN PRN Reason: Pain (moderate 4-6) Oxycodone/Acetaminophen (Percocet 325-5 Mg) 2 tab PO Q4H PRN PRN Reason: Pain (moderate 4-6) Oxycodone/Acetaminophen (Percocet 325-5 Mg) 1 tab PO Q4H PRN PRN Reason: Breakthrough Pain Sodium Chloride (Saline Flush) 10 ml FLUSH ASDIRECTED PRN PRN Reason: Keep Vein Open Sterile Water (Sterile Water For Irrigation) 1,000 ml IRR ASDIRECTED PRN PRN Reason: delivery Terbutaline Sulfate (Brethine) 0.25 mg SUBCUT ASDIRECTED PRN PRN Reason: Tacysystole Discontinued Medications Acetaminophen (Tylenol Extra Strength) 1,000 mg PO ONETIME ONE Stop: 04/30/17 15:21 Last Admin: 04/30/17 15:40 Dose: 1,000 mg Bupivacaine HCl (Sensorcaine-Mpf 0.5%) Confirm Administered Dose 20 ml .ROUTE .STK-MED ONE Stop: 04/30/17 17:31 Last Admin: 05/01/17 07:17 Dose: Not Given Bupivacaine HCl (Sensorcaine-Mpf 0.5%) Confirm Administered Dose 20 ml .ROUTE .STK-MED ONE Stop: 04/30/17 17:44 Last Admin: 05/01/17 07:18 Dose: Not Given Butorphanol Tartrate (Stadol) 1 mg IVPUSH Q1H PRN PRN Reason: Pain Carboprost Tromethamine (Hemabate Ds) 250 mcg IM ASDIRECTED PRN PRN Reason: Post Hemorrhage Fentanyl (Sublimaze) Confirm Administered Dose 100 mcg .ROUTE .STK-MED ONE Stop: 04/30/17 07:42 Last Admin: 04/30/17 08:52 Dose: Not Given Fentanyl (Sublimaze) Confirm Administered Dose 100 mcg .ROUTE .[facility] ONE Stop: 04/30/17 17:32 Last Admin: 05/01/17 07:17 Dose: Not Given Fentanyl (Sublimaze) Confirm Administered Dose 100 mcg .ROUTE .[facility] ONE Stop: 04/30/17 17:43 Last Admin: 05/01/17 07:17 Dose: Not Given Lactated Ringer's (Ringers, Lactated) 1,000 mls @ 150 mls/hr IV ASDIRECTED [facility] Ropivacaine (Naropin 0.2%) Confirm Administered Dose 100 mls @ as directed .ROUTE .[facility] ONE Stop: 04/30/17 07:43 Last Admin: 04/30/17 08:52 Dose: Not Given Ampicillin Sodium 2 gm/ Sodium (Chloride) 100 mls @ 200 mls/hr IV ONETIME ONE Stop: 04/30/17 08:59 Last Admin: 04/30/17 08:29 Dose: 200 mls/hr Ampicillin Sodium 1 gm/ Sodium (Chloride) 50 mls @ 100 mls/hr IV Q4H [facility] Last Admin: 05/02/17 07:13 Dose: Not Given Oxytocin/Sodium Chloride (Oxytocin 30 Unit/500 Ml-Ns) Confirm Administered Dose 30 unit in 500 mls @ as directed .ROUTE .STK-MED ONE Stop: 04/30/17 17:31 Last Admin: 05/01/17 07:17 Dose: Not Given Ketorolac Tromethamine (Toradol) 30 mg IVPUSH Q6H [facility] Stop: 05/01/17 18:46 Last Admin: 05/01/17 18:11 Dose: 30 mg Lidocaine HCl (Xylocaine 1%) 50 ml INJECT .ONCE PRN PRN Reason: Laceration repair Methylergonovine Maleate (Methergine) 0.2 mg IM ASDIRECTED PRN PRN Reason: Post Hemorrhage Misoprostol (Cytotec) 200 mcg PO .ONCE PRN PRN Reason: Post Hemorrhage Misoprostol (Cytotec) 25 mcg PO ONETIME ONE Stop: 04/29/17 13:23 Last Admin: 04/29/17 13:46 Dose: 25 mcg Morphine Sulfate (Duramorph Pf) Confirm Administered Dose 1 mg .ROUTE .STK-MED ONE Stop: 04/30/17 15:25 Nalbuphine HCl (Nubain) 10 mg IVPUSH Q1H PRN PRN Reason: Pain (severe 7-10) Nalbuphine HCl (Nubain) 2.5 mg IVPUSH Q3H PRN PRN Reason: Pruritis Stop: 05/01/17 19:14 Naloxone HCl (Narcan) 0.1 mg IVPUSH ONETIME PRN PRN Reason: RR<6 WITH STIMULATION Stop: 05/01/17 19:14 Octyl Cyanoacrylate (Dermabond Advance) Confirm Administered Dose 1 applic .ROUTE .STK-MED ONE Stop: 04/30/17 18:34 Ondansetron HCl (Zofran) 4 mg IVPUSH ONETIME ONE Stop: 04/30/17 07:27 Last Admin: 04/30/17 08:03 Dose: 4 mg Ondansetron HCl (Zofran) Confirm Administered Dose 4 mg .ROUTE .STK-MED ONE Stop: 04/30/17 18:31 Phenylephrine HCl (Phenylephrine In Ns 100 Mcg/Ml) Confirm Administered Dose 1 mg .ROUTE .STK-MED ONE Stop: 04/30/17 18:06 Sodium Chloride (Saline Flush) 2.5 ml FLUSH ASDIRECTED PRN PRN Reason: Keep Vein Open Sterile Water (Sterile Water For Irrigation) 1,000 ml IRR ASDIRECTED PRN PRN Reason: delivery - Exam General: Reports: Alert, Oriented, Cooperative, No Acute Distress Lungs: Reports: Normal Respiratory Effort GI/Abdominal Exam: Soft, Non-Tender (Female) Exam: Vaginal Bleeding Rectal (Female) Exam: Deferred Back Exam: Reports: Full Range of Motion Extremities: Normal Range of Motion, Non-Tender, No Pedal Edema, Normal Capillary Refill Skin: Reports: Warm, Dry, Intact Wound/Incisions: Reports: Healing Well, No Drainage Neurological: Reports: No New Focal Deficit, Normal Gait, Normal Speech, Normal Tone Psy/Mental Status: Reports: Alert, Normal Affect, Normal Mood *Q Meaningful Use (DIS) - VTE *Q VTE Criteria *Q: - Stroke *Q Stroke Criteria *Q: - AMI *Q AMI Criteria *Q:
[2017-05-02 11:59] VITALS: BP 119/67
== END 2017-05-02 14:40 | disposition home or self-care (01) | DRG 540 ==
LOC: MW.OBCHECK 12:10 → MW.OB 12:12 → MW.OBCHECK 12:55 → MW.OB 13:35 → OBSVTOIN 04-30 18:24 → MW.OB 04-30 20:14
PROVIDERS: ADMIT Obstetrics & Gynecology; ATTEND Obstetrics & Gynecology
PROC: 3E0P7VZ Introduction of Hormone into Female Reproductive, Via Natural or Artificial Opening (ICD-10-PCS; principal; 2017-04-30)
PROC: 10D00Z1 Extraction of Products of Conception, Low, Open Approach (ICD-10-PCS; 2017-04-30)
PROC: 3E033VJ Introduction of Other Hormone into Peripheral Vein, Percutaneous Approach (ICD-10-PCS; 2017-04-30)
DX: O42.02 Full-term premature rupture of membranes, onset of labor within 24 hours of rupture (principal); O76 Abnormality in fetal heart rate and rhythm complicating labor and delivery; O75.2 Pyrexia during labor, not elsewhere classified; Z3A.38 38 weeks gestation of pregnancy; Z37.0 Single live birth
CPT/HCPCS: 01967; 01968; 36415; 51702; 59025; 85014; 85018; 85027; 85049; 86850; 86900; 86901; A9270-GY; J0290; J0595; J1200; J1885; J2274; J2405; J2590; J7030; J7050; J7120

== ENCOUNTER 2017-06-14 15:42 | Observation (INO) | payer BC ==
[2017-06-14] MEDS ORDERED: Sodium Chloride 0.9% 10 ML Syringe FLUSH PRN (16:01)
[2017-06-14] MEDS ORDERED: Sodium Chloride 0.9% 1,000 ML IV ONE ×2 (16:01→17:59)
[2017-06-14] MEDS ORDERED: Sodium Chloride 0.9% 2.5 ML Syringe FLUSH PRN (16:01)
--- NOTE | 2017-06-14 16:09 | EDM.PDOC ---
ED HPI GENERAL MEDICAL PROBLEM - General Chief Complaint: FIRE FIGHTER Problem Stated Complaint: HEAVY VAGINAL BLEEDING Time Seen by Provider: 06/14/17 15:52 - History of Present Illness INITIAL COMMENTS - FREE TEXT/NARRATIVE: HISTORY AND PHYSICAL: History of present illness: The patient is a 31-year-old female who is a 1 para 1 and delivered her child by on April [address] Fang and presents today with heavy vaginal bleeding that started approximately an hour ago. According to the patient she had bleeding with the delivery of her child and according to the operative note she had in estimated blood loss of 650 mL with the delivery and required Cytotec for hemorrhaging. I have reviewed her prior admission with the delivery of this baby. The patient says that since the delivery she has had vaginal spotting but has not been significantly heavy and she did see Dr. Aguilar 5 days ago and he was aware of the spotting and started her on low-dose control pills. The patient has been breast-feeding her child without issues and has had no other systemic complaints of fever chills abdominal pain vomiting diarrhea or urinary complaints. The patient said today she was having unusual small amount of spotting and then at 3 PM started having heavy vaginal bleeding with clots. She came in with a pad complete soaked and here in the ED she went to the toilet and passed 200 mL of blood and clots. She feels lightheaded and weak but she has not passed out or black out and has no chest pain or shortness of breath. She's actually no abdominal pain. Review of systems: As per history of present illness and below otherwise all systems reviewed and negative. Past medical history: As per history of present illness and as reviewed below otherwise noncontributory. Surgical history: As per history of present illness and as reviewed below otherwise noncontributory. Social history: No reported history of drug or alcohol abuse. Family history: As per history of present illness and as reviewed below otherwise noncontributory. Physical exam: Gen.: Well-developed well-nourished female who is nontoxic and vital signs were noted by me HEENT: Atraumatic, normocephalic, negative for conjunctival pallor or scleral icterus, mucous membranes moist, throat clear, neck supple, nontender, trachea midline. Lungs: Clear to auscultation, breath sounds equal bilaterally, chest nontender. Heart: S1S2, regular rhythm and slightly tachycardic rate on my evaluation Abdomen: Soft, nondistended, nontender. Completely benign abdomen on palpation with no tenderness rebound or guarding and scar is healing well without any tenderness defects or deformities. Negative for masses or hepatosplenomegaly. Pelvis: Stable nontender. Genitourinary: External genitalia are within normal limits but the diaper she was given to wear is completely soaked and saturated with bright red blood. On speculum exam the speculum is placed and there is an immediate gush of 75 mL of clots and blood. The cervix is visualized and it is fingertip and there is an aggressive stream of blood loss. The uterus itself is nontender and non-bulky and there is no adnexal tenderness. Rectal: Deferred. Extremities: Atraumatic, negative for cords or calf pain. Neurovascular unremarkable. Neuro: Awake, alert, oriented. Cranial nerves II through XII unremarkable. Cerebellum unremarkable. Motor and sensory unremarkable throughout. Exam nonfocal. Skin: There is no evidence of any rashes or lesions and turgor is normal. Diagnostics: CBC INR type and screen orthostatic vitals pelvic ultrasound Therapeutics: IV IV fluids Zofran Cytotec and Methergine Please note that on patient arrival to the ED she went to the bathroom prior to my exam and passed 200 mL of blood and clots in a hat. On my pelvic exam she had 75 mL of blood and clots in the vault which were extracted from a exam as above. 1625: Heart rate is 123 and blood pressure is 110/84 at this time and hemoglobin is now back at 13.4. She is continuing with her vaginal bleeding and I have a page out to Dr. Aguilar. Patient started feeling nauseated so I will give her Zofran 1655: Rody Gtz the nurse restaurant inspector is here as a nursing engineering supervisor was unable to get a hold of Dr. Aguilar. She is going to examine the patient and does not want to do an ultrasound as the patient had a so there is no chance of retained products. She is requesting that we give her 200 mcg by mouth of Cytotec which I will order. 1710: Dr. Aguilar has called in and has spoken about the case with Rody. He apologized that he was from his phone temporarily and did not get the call. He is requesting that a test be performed as well as an ultrasound. He agrees with the Cytotec but does not want to give Pitocin at this time. Rody has examined the patient and says that she is still bleeding although significantly less than earlier. He was to be contacted with the testing results once available and he will make a decision for disposition. 174: Rody Gtz is at bedside with the bulk mail technician and she says that there is no blood or clots in the upper part of the uterus but there are blood clots in the lower part of the uterus which she has been helping to extract. She is aware of the positive qualitative hCG and we are currently waiting for the Quant hCG. 175: After the patient got up to go to the bathroom with Rody and one of our nurses she passed significantly more blood and clots and she dropped her blood pressure to 80s systolic with a heart rate of 140s. She felt woozy and was quickly brought back to the bed. A second IV line will be started and a second liter of fluid will be given. Rody talked to Dr. Aguilar at this time and he would like to units of packed red blood cells to be available and we will repeat a hemoglobin in the ER. He also would like Methergine to be given and I placed that order. We will admit her to observation to labor and delivery per his direction. 181: Repeat hemoglobin is 12.3 and the serum quantitative hCG is 6. Patient will be going to /labor and delivery and I will follow the pelvic ultrasound results. Total critical care time excluding procedures:40min Impression: Post bleeding 6 weeks status post Definitive disposition and diagnosis as appropriate pending reevaluation and review of above. 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: Psychiatric History: Reports: Depression Endocrine/Metabolic History: Reports: Other (See Below) Other Endocrine/Metabolic History: hypoglycemia Hematologic History: Reports: Idiopathic Thrombocytopenia - Infectious Disease History Infectious Disease History: Reports: Shingles - Past Surgical History HEENT Surgical History: Reports: Tonsillectomy Female Surgical History: Reports: Breast Reconstruction, Section Social & Family History - Family History Family Medical History: Noncontributory - Tobacco Use Smoking Status *Q: Never Smoker Second Hand Smoke Exposure: No ED ROS GENERAL - Review of Systems Review Of Systems: ROS reveals no pertinent complaints other than HPI. ED EXAM, GENERAL - Physical Exam Exam: See Below (see dictation) Course - Vital Signs Last Recorded V/S: Last Vital Signs Temp 37.1 C 06/14/17 16:09 Pulse 97 06/14/17 16:40 Resp 20 06/14/17 16:40 BP 103/66 06/14/17 16:40 Pulse Ox 100 06/14/17 16:40 - Orders/Labs/Meds Orders: Active Orders 24 hr Category Date Time Status Patient Status [ADT] Stat ADT 06/14/17 18:05 Active Notify Provider Consults [RC] ASDIRECTED Care 06/14/17 17:06 Active Orthostatic Vital Signs [RC] ASDIRECTED Care 06/14/17 15:55 Active Consult to Physician [CONS] Stat Cons 06/14/17 17:06 Active Pelvis Non OB Comp [US] Stat Exams 06/14/17 17:13 Ordered RED BLOOD CELLS LP [BBK] Stat Lab 06/14/17 16:09 Results TYPE AND SCREEN [BBK] Stat Lab 06/14/17 16:09 Results Sodium Chloride 0.9% [Normal Saline] 1,000 ml Med 06/14/17 17:59 Active IV STAT Sodium Chloride 0.9% [Saline Flush] Med 06/14/17 16:01 Active 10 ml FLUSH ASDIRECTED PRN Sodium Chloride 0.9% [Saline Flush] Med 06/14/17 16:01 Active 2.5 ml FLUSH ASDIRECTED PRN Saline Lock Insert [OM.PC] Stat Oth 06/14/17 16:00 Ordered Medication Orders Sodium Chloride (Normal Saline) 1,000 mls @ 999 mls/hr IV STAT ONE Stop: 06/14/17 18:59 Last Admin: 06/14/17 18:11 Dose: 999 mls/hr Sodium Chloride (Saline Flush) 10 ml FLUSH ASDIRECTED PRN PRN Reason: Keep Vein Open Last Admin: 06/14/17 16:38 Dose: 10 ml Sodium Chloride (Saline Flush) 2.5 ml FLUSH ASDIRECTED PRN PRN Reason: Keep Vein Open Last Admin: 06/14/17 16:38 Dose: 2.5 ml Labs: Laboratory Tests 06/14/17 06/14/17 06/14/17 Range/Units 16:09 16:09 16:09 WBC 5.75 (4.0-11.0) K/uL RBC 4.27 L (4.30-5.90) M/uL Hgb 13.4 (12.0-16.0) g/dL Hct 37.6 (36.0-46.0) % MCV 88.1 (80.0-98.0) fL MCH 31.4 (27.0-32.0) pg MCHC 35.6 (31.0-37.0) g/dL RDW Std Deviation 36.9 (28.0-62.0) fl RDW Coeff of Kadie 12 (11.0-15.0) % Plt Count 159 (150-400) K/uL MPV 10.60 (7.40-12.00) fL Neut % (Auto) 32.9 L (48.0-80.0) % Lymph % (Auto) 52.2 H (16.0-40.0) % Vill[place]ba % (Auto) 10.4 (0.0-15.0) % Eos % (Auto) 4.2 (0.0-7.0) % Baso % (Auto) 0.3 (0.0-1.5) % Neut # (Auto) 1.9 (1.4-5.7) K/uL Lymph # (Auto) 3.0 H (0.6-2.4) K/uL [place] # (Auto) 0.6 (0.0-0.8) K/uL Eos # (Auto) 0.2 (0.0-0.7) K/uL Baso # (Auto) 0.0 (0.0-0.1) K/uL Nucleated RBC % 0.0 /100WBC Nucleated RBCs # 0 K/uL INR 1.05 HCG, Qual (NEG) HCG, Quant mIU/mL Blood Type O POSITIVE Antibody Screen NEGATIVE Crossmatch See Detail 06/14/17 06/14/17 06/14/17 Range/Units 16:09 16:09 18:04 WBC 7.94 (4.0-11.0) K/uL RBC 3.96 L (4.30-5.90) M/uL Hgb 12.3 (12.0-16.0) g/dL Hct 35.2 L (36.0-46.0) % MCV 88.9 (80.0-98.0) fL MCH 31.1 (27.0-32.0) pg MCHC 34.9 (31.0-37.0) g/dL RDW Std Deviation 37.2 (28.0-62.0) fl RDW Coeff of Kadie 11 (11.0-15.0) % Plt Count 175 (150-400) K/uL MPV 10.70 (7.40-12.00) fL Neut % (Auto) (48.0-80.0) % Lymph % (Auto) (16.0-40.0) % [place] % (Auto) (0.0-15.0) % Eos % (Auto) (0.0-7.0) % Baso % (Auto) (0.0-1.5) % Neut # (Auto) (1.4-5.7) K/uL Lymph # (Auto) (0.6-2.4) K/uL [place] # (Auto) (0.0-0.8) K/uL Eos # (Auto) (0.0-0.7) K/uL Baso # (Auto) (0.0-0.1) K/uL Nucleated RBC % 0.0 /100WBC Nucleated RBCs # 0 K/uL INR HCG, Qual POSITIVE H (NEG) HCG, Quant 6.0 mIU/mL Blood Type Antibody Screen Crossmatch Meds: Medications Generic Name Dose Route Start Last Admin Trade Name Freq PRN Reason Stop Dose Admin Sodium Chloride 1,000 mls @ 999 mls/hr 06/14/17 17:59 06/14/17 18:11 Normal Saline IV 06/14/17 18:59 999 mls/hr STAT ONE Administration Sodium Chloride 10 ml 06/14/17 16:01 06/14/17 16:38 Saline Flush FLUSH 10 ml ASDIRECTED PRN Administration Keep Vein Open Sodium Chloride 2.5 ml 06/14/17 16:01 06/14/17 16:38 Saline Flush FLUSH 2.5 ml ASDIRECTED PRN Administration Keep Vein Open Discontinued Medications Generic Name Dose Route Start Last Admin Trade Name Freq PRN Reason Stop Dose Admin Sodium Chloride 1,000 mls @ 999 mls/hr 06/14/17 16:01 06/14/17 16:38 Normal Saline IV 06/14/17 17:01 999 mls/hr STAT ONE Administration Methylergonovine Maleate 0.2 mg 06/14/17 18:01 Methergine IM 06/14/17 18:02 ONETIME ONE Methylergonovine Maleate Confirm 06/14/17 18:08 Methergine Administered 06/14/17 18:09 Dose 0.2 mg .ROUTE .STK-MED ONE Misoprostol 200 mcg 06/14/17 17:00 06/14/17 17:30 Cytotec PO 06/14/17 17:01 200 mcg ONETIME ONE Administration Ondansetron HCl 4 mg 06/14/17 16:30 06/14/17 16:37 Zofran IVPUSH 06/14/17 16:31 4 mg ONETIME ONE Administration Departure - Departure Time of Disposition: 18:15 Disposition: Refer to Observation Condition: Fair Clinical Impression: bleeding Qualifiers: hemorrhage type: unspecified Qualified Code(s): O72.1 - Other immediate hemorrhage - Discharge Information Referrals: Colby Aguilar MD [Primary Care Provider] - Forms: ED Department Discharge - My Orders Last 24 Hours: My Active Orders 06/14/17 15:55 Orthostatic Vital Signs [RC] ASDIRECTED 06/14/17 16:00 Saline Lock Insert [OM.PC] Stat 06/14/17 16:01 Sodium Chloride 0.9% [Saline Flush] 10 ml FLUSH ASDIRECTED PRN Sodium Chloride 0.9% [Saline Flush] 2.5 ml FLUSH ASDIRECTED PRN 06/14/17 16:09 RED BLOOD CELLS LP [BBK] Stat TYPE AND SCREEN [BBK] Stat 06/14/17 17:06 Notify Provider Consults [RC] ASDIRECTED Consult to Physician [CONS] Stat 06/14/17 17:13 Pelvis Non OB Comp [US] Stat 06/14/17 17:59 Sodium Chloride 0.9% [Normal Saline] 1,000 ml IV STAT 06/14/17 18:05 Patient Status [ADT] Stat - Assessment/Plan Last 24 Hours: My Active Orders 06/14/17 15:55 Orthostatic Vital Signs [RC] ASDIRECTED 06/14/17 16:00 Saline Lock Insert [OM.PC] Stat 06/14/17 16:01 Sodium Chloride 0.9% [Saline Flush] 10 ml FLUSH ASDIRECTED PRN Sodium Chloride 0.9% [Saline Flush] 2.5 ml FLUSH ASDIRECTED PRN 06/14/17 16:09 RED BLOOD CELLS LP [BBK] Stat TYPE AND SCREEN [BBK] Stat 06/14/17 17:06 Notify Provider Consults [RC] ASDIRECTED Consult to Physician [CONS] Stat 06/14/17 17:13 Pelvis Non OB Comp [US] Stat 06/14/17 17:59 Sodium Chloride 0.9% [Normal Saline] 1,000 ml IV STAT 06/14/17 18:05 Patient Status [ADT] Stat
[2017-06-14] MEDS ORDERED: Ondansetron 4 MG/2 ML SDV IVPUSH ONE (16:30)
[2017-06-14] MEDS ORDERED: Misoprostol 200 MCG Tab PO ONE (17:00)
[2017-06-14] MEDS ORDERED: Methylergonovine 0.2 MG/1 ML Amp IM ONE (18:01)
[2017-06-14] MEDS ORDERED: Methylergonovine 0.2 MG/1 ML Amp ONE (18:08)
[2017-06-14] MEDS: Escitalopram 10 MG Tab PO SCH (20:31)
[2017-06-15] MEDS ORDERED: Lactated Ringers 1,000 ML IV SCH (02:45)
--- NOTE | 2017-06-15 07:57 | US ---
EXAM DATE: 06/14/17 PATIENT'S AGE: 31 Patient: DEMETRIUS AL Facility: [place], [place] Site . Site : [id number] Study: US Pelvis -06/14/2017 6:14:54 PM Ordering Physician: Chauncey Saunders Final Report: INDICATION: Heavy vaginal bleeding following section TECHNIQUE: Ultrasound limited pelvis transabdominal. Real-time sonographic images with spectral and color Doppler imaging of the ovaries were obtained. COMPARISON: None FINDINGS: Uterus: 11 x 4.4 cm. Normal echotexture of the myometrium noted. Endometrium: There is a round echogenic focus in the lower uterine segment of the uterus which measures 2.6 cm in diameter. No definite blood flow seen on color Doppler images the sensitivity is diminished due to the high frequency pulse repetition level selected. Right ovary: Not visualized. Left ovary: Not visualized. Cul-de-sac: No significant ascites noted. IMPRESSION: 1. There is an echogenic focus in the lower uterine segment measuring 2.6 cm in diameter, suspicious for retained products of conception. Dictated by Ezequiel Gonzalez MD @ 06/14/2017 6:41:58 PM Dictated by: Ezequiel Gonzalez MD @ 06/14/2017 18:42:05 (Electronic Signature) Report Signed by Proxy. LILI
[2017-06-15] MEDS ORDERED: Sodium Chloride 0.9% 250 ML IV SCH (10:15)
--- NOTE | 2017-06-15 10:50 | PCM.HP ---
H&P History of Present Illness - General Date of Service: 06/15/17 Admit Problem/Dx: Admission Diagnosis/Problem Admission Diagnosis/Problem Bleeding Source of Information: Patient History Limitations: Reports: No Limitations - History of Present Illness Onset of Symptoms: Reports: Sudden Improves with: Reports: None Worsens with: Reports: None Associated Symptoms: Reports: No Other Symptoms - Related Data Allergies/Adverse Reactions: Allergies Allergy/AdvReac Type Severity Reaction Status Date / Time No Known Allergies Allergy Verified 01/20/17 11:56 Home Medications: Home Meds Escitalopram [Lexapro] 20 mg PO DAILY 06/14/17 [History] Norgestimate-Ethinyl Estradiol [Trinessa Lo Tablet] 1 tab PO DAILY 06/14/17 [ History] 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: Psychiatric History: Reports: Depression Endocrine/Metabolic History: Reports: Other (See Below) Other Endocrine/Metabolic History: hypoglycemia Hematologic History: Reports: Idiopathic Thrombocytopenia - Infectious Disease History Infectious Disease History: Reports: Shingles - Past Surgical History HEENT Surgical History: Reports: Tonsillectomy Female Surgical History: Reports: Breast Reconstruction, Section Social & Family History - Family History Family Medical History: Noncontributory - Tobacco Use Smoking Status *Q: Never Smoker Second Hand Smoke Exposure: No - Caffeine Use Caffeine Use: Reports: None - Recreational Drug Use Recreational Drug Use: No H&P Review of Systems - Review of Systems: Review Of Systems: See Below General: Reports: No Symptoms HEENT: Reports: No Symptoms Pulmonary: Reports: No Symptoms Cardiovascular: Reports: No Symptoms Gastrointestinal: Reports: No Symptoms Genitourinary: Reports: No Symptoms Musculoskeletal: Reports: No Symptoms Skin: Reports: No Symptoms Psychiatric: Reports: No Symptoms Neurological: Reports: No Symptoms Hematologic/Lymphatic: Reports: No Symptoms Immunologic: Reports: No Symptoms Exam - Exam Exam: See Below - Vital Signs Vital Signs: Last Vital Signs Temp 36.8 C 06/15/17 07:50 Pulse 88 06/15/17 07:50 Resp 14 06/15/17 07:50 BP 97/68 06/15/17 07:50 Pulse Ox 99 06/15/17 07:50 Orthostatic Blood Pressure [ 108/58 Sitting] Weight: 83.007 kg - Exam General: Alert, Oriented, 4 HEENT: PERRLA, Hearing Intact, Mucosa Moist & [place], Nares Patent, Normal Nasal Septum, Posterior Pharynx Clear, Conjunctiva Clear, EOMI, EACs Clear, TMs Clear Neck: Supple, Trachea Midline, 2 Lungs: Clear to Auscultation, Normal Respiratory Effort Cardiovascular: Regular Rate, Regular Rhythm GI/Abdominal Exam: Normal Bowel Sounds, Soft, Non-Tender, No Organomegaly, No Distention, No Abnormal Bruit, No Mass, Pelvis Stable (Female) Exam: Normal External Exam, Normal Speculum Exam, Normal Bimanual Exam Rectal (Female) Exam: Normal Exam, Normal Rectal Tone Back Exam: Normal Inspection, Full Range of Motion, NT Extremities: Normal Inspection, Normal Range of Motion, Non-Tender, No Pedal Edema, Normal Capillary Refill Skin: Warm, Dry, Intact Neurological: Cranial Nerves Intact, Reflexes Equal Bilateral Neuro Extensive - Mental Status: Alert, Oriented x3, Normal Mood/Affect, Normal Cognition Neuro Extensive - Motor, Sensory, Reflexes: CN II-XII Intact, Normal Gait, Normal Reflexes Psychiatric: Alert, Normal Affect, Normal Mood - Patient Data Lab Results Last 24 hrs: Laboratory Results - last 24 hr 06/14/17 06/15/17 Range/Units 19:55 06:08 WBC 6.89 (4.0-11.0) K/uL RBC 3.45 L (4.30-5.90) M/uL Hgb 10.7 L 8.2 L (12.0-16.0) g/dL Hct 30.7 L 23.8 L (36.0-46.0) % MCV 89.0 (80.0-98.0) fL MCH 31.0 (27.0-32.0) pg MCHC 34.9 (31.0-37.0) g/dL RDW Std Deviation 37.6 (28.0-62.0) fl RDW Coeff of Kadie 12 (11.0-15.0) % Plt Count 177 (150-400) K/uL MPV 10.70 (7.40-12.00) fL Neut % (Auto) 60.7 (48.0-80.0) % Lymph % (Auto) 31.1 (16.0-40.0) % [place] % (Auto) 6.5 (0.0-15.0) % Eos % (Auto) 1.3 (0.0-7.0) % Baso % (Auto) 0.4 (0.0-1.5) % Neut # (Auto) 4.2 (1.4-5.7) K/uL Lymph # (Auto) 2.1 (0.6-2.4) K/uL [place] # (Auto) 0.5 (0.0-0.8) K/uL Eos # (Auto) 0.1 (0.0-0.7) K/uL Baso # (Auto) 0.0 (0.0-0.1) K/uL Nucleated RBC % 0.0 /100WBC Nucleated RBCs # 0 K/uL Result Diagrams: 06/15/17 06:08 *Q Meaningful Use (ADM) - VTE *Q VTE Criteria *Q: - Stroke *Q Stroke Criteria *Q: - AMI *Q AMI Criteria *Q: Problem List Initiated/Reviewed/Updated: Yes Orders Last 24hrs: Active Orders 24 hr Category Date Time Status NPO [Nothing Per Oral Diet] [DIET] Diet 06/15/17 Lunch Active Pelvis Non OB Ltd [US] Routine Exams 06/15/17 08:32 Taken Escitalopram [Lexapro] Med 06/14/17 20:15 Active 20 mg PO DAILY Lactated Ringers [Ringers, Lactated] 1,000 ml Med 06/15/17 02:45 Active IV ASDIRECTED Sodium Chloride 0.9% [Normal Saline] 250 ml Med 06/15/17 10:15 Active IV ASDIRECTED Transfuse RBC [Transfuse Red Blood Cells] [COMM] Oth 06/15/17 08:28 Ordered Routine Medication Orders Escitalopram Oxalate (Lexapro) 20 mg PO DAILY REINA Last Admin: 06/14/17 20:31 Dose: 20 mg Lactated Ringer's (Ringers, Lactated) 1,000 mls @ 125 mls/hr IV ASDIRECTED REINA Sodium Chloride (Normal Saline) 250 mls @ 25 mls/hr IV ASDIRECTED REINA Sodium Chloride (Saline Flush) 10 ml FLUSH ASDIRECTED PRN PRN Reason: Keep Vein Open Last Admin: 06/14/17 16:38 Dose: 10 ml Sodium Chloride (Saline Flush) 2.5 ml FLUSH ASDIRECTED PRN PRN Reason: Keep Vein Open Last Admin: 03/04/18 16:38 Dose: 2.5 ml Assessment/Plan Comment:: This patient is status post section 6 weeks ago she was in the office for examination 2 days ago she have no symptom and no complain however the patient started having sudden onset of excessive vaginal bleeding and she was seen in the emergency room she was symptomatic with a blood loss the patient is admitted to the hospital for observation ultrasound in the ER and later on the next day is shows a blood clot with the possibility of product of conception. Yesterday when I did a speculum examination the cervical os was opened there is blood clot I tried to sweep with the ring forceps small amount of products of conception is removed the patient to stop bleeding. My plan on the patient is to transfuse HER-2 units of packed cells today and to do examination under anesthesia over the D&E possible D&C to make sure there is no more products of conception I discussed this plan with the patient she agreed to it and she consented for the surgery and this is would be done today sometime
--- NOTE | 2017-06-15 11:06 | US ---
EXAMINATION: Transabdominal and transvaginal pelvic ultrasound HISTORY: Smoking for retained products of conception COMPARISON: 06/14/2017 TECHNIQUE: Grayscale, color Doppler images obtained. FINDINGS: Within the lower uterine segment there is a heterogeneous echogenic 2.7 x 2.6 cm region. Th is appears to be along the posterior and lower wall. There is faint internal color Doppler flow. The left ovary appears unremarkable containing a dominant follicle. Right ovary is not characterized. No adnexal masses. No significant free pelvic fluid. Endometrial stripe thickness measures 7 mm. IMPRESSION: 1. Within the posterior lower uterine segment there is a 2.7 cm echogenic masslike area. This may rep resent chronic retained products of conception versus a fibroid.
[2017-06-15] MEDS ORDERED: Ondansetron 4 MG/2 ML SDV ONE (12:39)
[2017-06-15] MEDS ORDERED: Midazolam 1 MG/ML 2 ML SDV ONE (12:40)
[2017-06-15] MEDS ORDERED: Propofol 200 MG/20 ML SDV ONE (12:40)
[2017-06-15] MEDS ORDERED: fentaNYL 100 MCG/2 ML SDV ONE ×2 (12:40→13:51)
[2017-06-15] MEDS ORDERED: Methylergonovine 0.2 MG/1 ML Amp ONE (13:26)
[2017-06-15] MEDS ORDERED: ePHEDrine 50 MG/ML SDV ONE (13:31)
[2017-06-15] MEDS ORDERED: Arista AH Absorbable Hemostat ONE (13:34)
[2017-06-15] MEDS ORDERED: fentaNYL 100 MCG/2 ML SDV IVPUSH PRN (13:44)
[2017-06-15] MEDS ORDERED: Ketorolac 30 MG/ML SDV IVPUSH ONE (13:49)
[2017-06-15] MEDS ORDERED: Promethazine 25 MG/ML SDV IM PRN (13:49)
[2017-06-15] MEDS ORDERED: Morphine 4 MG/ML Syringe IVPUSH PRN (13:49)
[2017-06-15] MEDS ORDERED: Acetaminophen/oxyCODONE 325-5 MG Tab PO PRN ×2 (13:49)
[2017-06-15] MEDS ORDERED: Ondansetron 4 MG/2 ML SDV IVPUSH PRN (13:49)
[2017-06-15] MEDS ORDERED: Morphine 2 MG/ML Syringe IVPUSH PRN (13:49)
--- NOTE | 2017-06-15 13:55 | PCM.OPNOTE ---
- General Post-Op/Procedure Note Date of Surgery/Procedure: 06/15/17 Operative Procedure(s): D&E Pre Op Diagnosis: Bleeding Post-Op Diagnosis: Same Primary Surgeon: Colby Aguilar EBL in mLs: 700 Complications: None Condition: Stable Free Text/Narrative:: Intake & Output 06/14/17 06/15/17 06/15/17 22:59 06:59 14:59 Intake Total 600 370 Output Total 400 Balance 200 370
--- NOTE | 2017-06-15 15:31 | PCM48HPAN ---
Post Anesthesia Note - EVALUATION WITHIN 48HRS OF ANESTHETIC Vital Signs in Normal Range: Yes Patient Participated in Evaluation: Yes Respiratory Function Stable: Yes Airway Patent: Yes Cardiovascular Function Stable: Yes Hydration Status Stable: Yes Pain Control Satisfactory: Yes Nausea and Vomiting Control Satisfactory: Yes Mental Status Recovered: Yes Resp Rate: 11 Temperature: 98.4 F
--- NOTE | 2017-06-15 15:32 | PCM.POSTAN ---
POST ANESTHESIA ASSESSMENT - MENTAL STATUS Mental Status: Alert, Oriented - RESPIRATORY Respiratory Status: Respiratory Rate WNL, Airway Patent, O2 Saturation Stable - CARDIOVASCULAR CV Status: Pulse Rate WNL, Blood Pressure Stable - GASTROINTESTINAL GI Status: No Symptoms - POST OP HYDRATION Hydration Status: Adequate & Stable
[2017-06-15] MEDS ORDERED: Ketorolac 30 MG/ML SDV IVPUSH PRN (20:00)
--- NOTE | 2017-06-15 20:11 | OR ---
SURGEON: Colby Aguilar MD DATE OF PROCEDURE: PREOPERATIVE DIAGNOSIS: bleeding. POSTOPERATIVE DIAGNOSIS: bleeding. OPERATION PERFORMED: Examination under anesthesia, suction D and E, D and C, removal of product of conception, and intrauterine packing. TAPER MACHINE: OR tech. ANESTHESIA: General with endotracheal intubation, Venessa Schroeder and Dr. Vasquez. ESTIMATED BLOOD LOSS: 700 mL. COMPLICATIONS: None. FINDINGS: Products of conception. INDICATION FOR SURGERY: This patient is 31. She is status post section six weeks ago. She was admitted through emergency room yesterday with sudden onset of excessive vaginal bleeding. Pelvic ultrasound revealed a possibility of products of conception was retained. The patient was admitted for observation with the intention of doing dilatation and evacuation. PROCEDURE IN DETAIL: The patient was brought to the OR, properly identified, and after adequate level of anesthesia, the patient was placed in lithotomy position, prepped and draped in sterile fashion as usual. Straight catheter was used to empty the bladder and then, Allis clamp was used to stabilize the cervix, and the cervix was already dilated to accommodate #10 cannula. The cannula was placed in the anterior cavity and the cavity was evacuated, and small chunk and a large piece of product of conception was removed with the cannula and the aid of ring forceps. Once we did that, then a large curette was inserted, and gentle curetting of the endometrial cavity, it was felt that reasonably the uterus is empty. However, the patient was rather bleeding briskly and she lost through the procedure about 700 mL. Endo Avitene was injected directly inside the uterus and then after that, packing of the uterus was done, tightly packing of the uterus and the vagina, and the procedure was ended. We will observe the patient. During the procedure, the patient received 1 unit of packed cells. At this time, the procedure was ended. The instrument and sponge count was correct. The patient tolerated the procedure well, went to recovery room in stable general condition. EDIN / TRAE /[id number]
[2017-06-15] MEDS: Escitalopram 10 MG Tab PO SCH (20:23)
[2017-06-16 06:08] LABS: CHLORIDE,CL 108 mmol/L (98-107); SODIUM,NA 141 mmol/L (136-145)
--- NOTE | 2017-06-16 07:43 | PCM.PREANE ---
Preanesthetic Assessment - Procedure Proposed Procedure: suction D&C for bleeding post 6 weeks csection. Received 1 unit PRBC and will receive one in the OR. - Anesthesia/Transfusion/Family Hx Anesthesia History: Prior Anesthesia Without Reaction Family History of Anesthesia Reaction: No Transfusion History: No Prior Transfusion(s) - Review of Systems Other: Reports: None - Physical Assessment O2 Sat by Pulse Oximetry: 98 Respiratory Rate: 16 Temperature: 36.9 C Vital Signs: Last Vital Signs Temp 37.1 C 06/16/17 04:00 Pulse 75 06/16/17 04:00 Resp 16 06/16/17 04:00 BP 117/72 06/16/17 04:00 Pulse Ox 98 06/16/17 04:00 Orthostatic Blood Pressure [ 108/58 Sitting] Height: 5 ft 7 in Weight: 83.007 kg ASA Class: 2 Mental Status: Alert & Oriented x3 Airway Class: Mallampati = 1 Dentition: Reports: Normal Dentition Thyro-Mental Finger Breadths: 3 Mouth Opening Finger Breadths: 3 ROM/Head Extension: Full - Lab Values: Laboratory Last Values WBC 6.37 K/uL (4.0-11.0) 06/16/17 05:42 RBC 2.93 M/uL (4.30-5.90) L 06/16/17 05:42 Hgb 8.8 g/dL (12.0-16.0) L 06/16/17 05:42 Hct 25.3 % (36.0-46.0) L 06/16/17 05:42 MCV 86.3 fL (80.0-98.0) 06/16/17 05:42 MCH 30.0 pg (27.0-32.0) 06/16/17 05:42 MCHC 34.8 g/dL (31.0-37.0) 06/16/17 05:42 RDW Std Deviation 43.9 fl (28.0-62.0) 06/16/17 05:42 RDW Coeff of Kadie 14 % (11.0-15.0) 06/16/17 05:42 Plt Count 118 K/uL (150-400) L 06/16/17 05:42 MPV 10.70 fL (7.40-12.00) 06/16/17 05:42 Neut % (Auto) 57.4 % (48.0-80.0) 06/16/17 05:42 Lymph % (Auto) 28.9 % (16.0-40.0) 06/16/17 05:42 [place] % (Auto) 8.8 % (0.0-15.0) 06/16/17 05:42 Eos % (Auto) 4.6 % (0.0-7.0) 06/16/17 05:42 Baso % (Auto) 0.3 % (0.0-1.5) 06/16/17 05:42 Neut # (Auto) 3.7 K/uL (1.4-5.7) 06/16/17 05:42 Lymph # (Auto) 1.8 K/uL (0.6-2.4) 06/16/17 05:42 [place] # (Auto) 0.6 K/uL (0.0-0.8) 06/16/17 05:42 Eos # (Auto) 0.3 K/uL (0.0-0.7) 06/16/17 05:42 Baso # (Auto) 0.0 K/uL (0.0-0.1) 06/16/17 05:42 Nucleated RBC % 0.0 /100WBC 06/16/17 05:42 Nucleated RBCs # 0 K/uL 06/16/17 05:42 INR 1.05 06/14/17 16:09 Sodium 141 mmol/L (136-145) 06/16/17 05:42 Potassium 4.2 mmol/L (3.5-5.1) 06/16/17 05:42 Chloride 108 mmol/L (98-107) H 06/16/17 05:42 Carbon Dioxide 25.2 mmol/L (21.0-32.0) 06/16/17 05:42 BUN 11 mg/dL (7.0-18.0) 06/16/17 05:42 Creatinine 0.8 mg/dL (0.6-1.0) 06/16/17 05:42 Est Cr Clr Drug Dosing 100.90 mL/min 06/16/17 05:42 Estimated GFR (MDRD) > 60.0 ml/min 06/16/17 05:42 Glucose 87 mg/dL (74-106) 06/16/17 05:42 Calcium 7.8 mg/dL (8.5-10.1) L 06/16/17 05:42 HCG, Qual POSITIVE (NEG) H 06/14/17 16:09 HCG, Quant 6.0 mIU/mL 06/14/17 16:09 Blood Type O POSITIVE 06/14/17 16:09 Antibody Screen NEGATIVE 06/14/17 16:09 Crossmatch See Detail 06/14/17 16:09 - Allergies Allergies/Adverse Reactions: Allergies Allergy/AdvReac Type Severity Reaction Status Date / Time No Known Allergies Allergy Verified 01/20/17 11:56 - Blood Blood Available: Yes Product(s) Available: PRBC - Acknowledgements Anesthesia Type Planned: General Anesthesia Pt an Appropriate Candidate for the Planned Anesthesia: Yes Alternatives and Risks of Anesthesia Discussed w Pt/Guardian: Yes Pt/Guardian Understands and Agrees with Anesthesia Plan: Yes PreAnesthesia Questionnaire - Past Health History Medical/Surgical History: Denies Medical/Surgical History RN PRIMARY CARE History: Reports: Psychiatric History: Reports: Depression Endocrine/Metabolic History: Reports: Other (See Below) Other Endocrine/Metabolic History: hypoglycemia Hematologic History: Reports: Idiopathic Thrombocytopenia - Infectious Disease History Infectious Disease History: Reports: Shingles - Past Surgical History HEENT Surgical History: Reports: Tonsillectomy Female Surgical History: Reports: Breast Reconstruction, Section - SUBSTANCE USE Smoking Status *Q: Never Smoker Second Hand Smoke Exposure: No Recreational Drug Use History: No - HOME MEDS Home Medications: Home Meds Escitalopram [Lexapro] 20 mg PO DAILY 06/14/17 [History] Norgestimate-Ethinyl Estradiol [Trinessa Lo Tablet] 1 tab PO DAILY 06/14/17 [ History] - CURRENT (IN HOUSE) MEDS Current Meds: Current Medications Escitalopram Oxalate (Lexapro) 20 mg PO DAILY [facility] Last Admin: 06/15/17 20:23 Dose: 20 mg Fentanyl (Sublimaze) 50 mcg IVPUSH SEECOMMENT PRN PRN Reason: Pain (moderate 4-6) Lactated Ringer's (Ringers, Lactated) 1,000 mls @ 125 mls/hr IV ASDIRECTED [facility] Sodium Chloride (Normal Saline) 250 mls @ 25 mls/hr IV ASDIRECTED [facility] Ketorolac Tromethamine (Toradol) 30 mg IVPUSH Q6H PRN PRN Reason: Pain (severe 7-10) Stop: 06/20/17 20:01 Last Admin: 06/15/17 21:47 Dose: 30 mg Morphine Sulfate (Morphine) 2 mg IVPUSH Q2H PRN PRN Reason: Pain (severe 7-10) Morphine Sulfate (Morphine) 4 mg IVPUSH Q2H PRN PRN Reason: Pain (severe 7-10) Ondansetron HCl (Zofran) 4 mg IVPUSH Q6H PRN PRN Reason: Nausea/Vomiting Oxycodone/Acetaminophen (Percocet 325-5 Mg) 1 tab PO Q4H PRN PRN Reason: Pain (moderate 4-6) Oxycodone/Acetaminophen (Percocet 325-5 Mg) 2 tab PO Q4H PRN PRN Reason: Pain (moderate 4-6) Promethazine HCl (Phenergan) 25 mg IM Q6H PRN PRN Reason: Nausea/Vomiting Sodium Chloride (Saline Flush) 10 ml FLUSH ASDIRECTED PRN PRN Reason: Keep Vein Open Last Admin: 06/14/17 16:38 Dose: 10 ml Sodium Chloride (Saline Flush) 2.5 ml FLUSH ASDIRECTED PRN PRN Reason: Keep Vein Open Last Admin: 06/14/17 16:38 Dose: 2.5 ml Discontinued Medications Ephedrine Sulfate (Ephedrine Sulfate) Confirm Administered Dose 50 mg .ROUTE .STK-MED ONE Stop: 06/15/17 13:32 Fentanyl (Sublimaze) Confirm Administered Dose 100 mcg .ROUTE .STK-MED ONE Stop: 06/15/17 12:41 Fentanyl (Sublimaze) Confirm Administered Dose 100 mcg .ROUTE .STK-MED ONE Stop: 06/15/17 13:52 Sodium Chloride (Normal Saline) 1,000 mls @ 999 mls/hr IV STAT ONE Stop: 06/14/17 17:01 Last Admin: 06/14/17 16:38 Dose: 999 mls/hr Sodium Chloride (Normal Saline) 1,000 mls @ 999 mls/hr IV STAT ONE Stop: 06/14/17 18:59 Last Admin: 06/14/17 18:11 Dose: 999 mls/hr Ketorolac Tromethamine (Toradol) 30 mg IVPUSH ONETIME ONE Stop: 06/15/17 13:50 Last Admin: 06/15/17 15:40 Dose: 30 mg Methylergonovine Maleate (Methergine) 0.2 mg IM ONETIME ONE Stop: 06/14/17 18:02 Last Admin: 06/14/17 18:17 Dose: 0.2 mg Methylergonovine Maleate (Methergine) Confirm Administered Dose 0.2 mg .ROUTE .STK-MED ONE Stop: 06/14/17 18:09 Last Admin: 06/14/17 18:22 Dose: Not Given Methylergonovine Maleate (Methergine) Confirm Administered Dose 0.2 mg .ROUTE .STK-MED ONE Stop: 06/15/17 13:27 Midazolam HCl (Versed 1 Mg/Ml) Confirm Administered Dose 2 mg .ROUTE .STK-MED ONE Stop: 06/15/17 12:41 Misoprostol (Cytotec) 200 mcg PO ONETIME ONE Stop: 06/14/17 17:01 Last Admin: 06/14/17 17:30 Dose: 200 mcg Non-Formulary Medication (Marian Ah Absorbable Hemostat) Confirm Administered Dose 1 each .ROUTE .STK-MED ONE Stop: 06/15/17 13:35 Ondansetron HCl (Zofran) 4 mg IVPUSH ONETIME ONE Stop: 06/14/17 16:31 Last Admin: 06/14/17 16:37 Dose: 4 mg Ondansetron HCl (Zofran) Confirm Administered Dose 4 mg .ROUTE .STK-MED ONE Stop: 06/15/17 12:40 Propofol (Diprivan 20 Ml) Confirm Administered Dose 200 mg .ROUTE .STK-MED ONE Stop: 06/15/17 12:41 Tranexamic Acid (Cyklokapron) Confirm Administered Dose 1,000 mg .ROUTE .STK- MED ONE Stop: 06/15/17 13:35
[2017-06-16] MEDS: Escitalopram 10 MG Tab PO SCH ×2 (08:47→09:11)
--- NOTE | 2017-06-16 10:02 | PCM.SURGPN ---
- General Info Date of Service: 06/16/17 POD#: 1 Functional Status: Reports: Pain Controlled - Review of Systems General: Reports: No Symptoms HEENT: Reports: No Symptoms Pulmonary: Reports: No Symptoms Cardiovascular: Reports: No Symptoms Gastrointestinal: Reports: No Symptoms Genitourinary: Reports: No Symptoms Musculoskeletal: Reports: No Symptoms Skin: Reports: No Symptoms Neurological: Reports: No Symptoms Psychiatric: Reports: No Symptoms - Patient Data Vitals - Most Recent: Last Vital Signs Temp 36.9 C 06/16/17 08:42 Pulse 93 06/16/17 08:42 Resp 16 06/16/17 08:42 BP 119/60 06/16/17 08:42 Pulse Ox 97 06/16/17 08:42 Orthostatic Blood Pressure [ 108/58 Sitting] Weight - Most Recent: 83.007 kg I&O - Last 24 Hours: Intake & Output 06/15/17 06/16/17 06/16/17 22:59 06:59 14:59 Intake Total 2000 Output Total 1650 Balance 350 Lab Results Last 24 Hrs: Laboratory Results - last 24 hr 06/15/17 06/15/17 06/16/17 Range/Units 15:58 19:59 05:42 WBC 6.37 (4.0-11.0) K/uL RBC 2.93 L (4.30-5.90) M/uL Hgb 9.3 L 9.2 L 8.8 L (12.0-16.0) g/dL Hct 26.6 L 26.1 L 25.3 L (36.0-46.0) % MCV 86.3 (80.0-98.0) fL MCH 30.0 (27.0-32.0) pg MCHC 34.8 (31.0-37.0) g/dL RDW Std Deviation 43.9 (28.0-62.0) fl RDW Coeff of Kadie 14 (11.0-15.0) % Plt Count 118 L (150-400) K/uL MPV 10.70 (7.40-12.00) fL Neut % (Auto) 57.4 (48.0-80.0) % Lymph % (Auto) 28.9 (16.0-40.0) % [place] % (Auto) 8.8 (0.0-15.0) % Eos % (Auto) 4.6 (0.0-7.0) % Baso % (Auto) 0.3 (0.0-1.5) % Neut # (Auto) 3.7 (1.4-5.7) K/uL Lymph # (Auto) 1.8 (0.6-2.4) K/uL [place] # (Auto) 0.6 (0.0-0.8) K/uL Eos # (Auto) 0.3 (0.0-0.7) K/uL Baso # (Auto) 0.0 (0.0-0.1) K/uL Nucleated RBC % 0.0 /100WBC Nucleated RBCs # 0 K/uL Sodium (136-145) mmol/L Potassium (3.5-5.1) mmol/L Chloride (98-107) mmol/L Carbon Dioxide (21.0-32.0) mmol/L BUN (7.0-18.0) mg/dL Creatinine (0.6-1.0) mg/dL Est Cr Clr Drug Dosing mL/min Estimated GFR (MDRD) ml/min Glucose (74-106) mg/dL Calcium (8.5-10.1) mg/dL 06/16/17 Range/Units 05:42 WBC (4.0-11.0) K/uL RBC (4.30-5.90) M/uL Hgb (12.0-16.0) g/dL Hct (36.0-46.0) % MCV (80.0-98.0) fL MCH (27.0-32.0) pg MCHC (31.0-37.0) g/dL RDW Std Deviation (28.0-62.0) fl RDW Coeff of Kadie (11.0-15.0) % Plt Count (150-400) K/uL MPV (7.40-12.00) fL Neut % (Auto) (48.0-80.0) % Lymph % (Auto) (16.0-40.0) % [place] % (Auto) (0.0-15.0) % Eos % (Auto) (0.0-7.0) % Baso % (Auto) (0.0-1.5) % Neut # (Auto) (1.4-5.7) K/uL Lymph # (Auto) (0.6-2.4) K/uL [place] # (Auto) (0.0-0.8) K/uL Eos # (Auto) (0.0-0.7) K/uL Baso # (Auto) (0.0-0.1) K/uL Nucleated RBC % /100WBC Nucleated RBCs # K/uL Sodium 141 (136-145) mmol/L Potassium 4.2 (3.5-5.1) mmol/L Chloride 108 H (98-107) mmol/L Carbon Dioxide 25.2 (21.0-32.0) mmol/L BUN 11 (7.0-18.0) mg/dL Creatinine 0.8 (0.6-1.0) mg/dL Est Cr Clr Drug Dosing 100.90 mL/min Estimated GFR (MDRD) > 60.0 ml/min Glucose 87 (74-106) mg/dL Calcium 7.8 L (8.5-10.1) mg/dL Med Orders - Current: Current Medications Escitalopram Oxalate (Lexapro) 20 mg PO DAILY [facility] Last Admin: 06/16/17 09:11 Dose: 20 mg Fentanyl (Sublimaze) 50 mcg IVPUSH SEECOMMENT PRN PRN Reason: Pain (moderate 4-6) Lactated Ringer's (Ringers, Lactated) 1,000 mls @ 125 mls/hr IV ASDIRECTED [facility] Sodium Chloride (Normal Saline) 250 mls @ 25 mls/hr IV ASDIRECTED [facility] Ketorolac Tromethamine (Toradol) 30 mg IVPUSH Q6H PRN PRN Reason: Pain (severe 7-10) Stop: 06/20/17 20:01 Last Admin: 06/15/17 21:47 Dose: 30 mg Morphine Sulfate (Morphine) 2 mg IVPUSH Q2H PRN PRN Reason: Pain (severe 7-10) Morphine Sulfate (Morphine) 4 mg IVPUSH Q2H PRN PRN Reason: Pain (severe 7-10) Ondansetron HCl (Zofran) 4 mg IVPUSH Q6H PRN PRN Reason: Nausea/Vomiting Oxycodone/Acetaminophen (Percocet 325-5 Mg) 1 tab PO Q4H PRN PRN Reason: Pain (moderate 4-6) Oxycodone/Acetaminophen (Percocet 325-5 Mg) 2 tab PO Q4H PRN PRN Reason: Pain (moderate 4-6) Promethazine HCl (Phenergan) 25 mg IM Q6H PRN PRN Reason: Nausea/Vomiting Sodium Chloride (Saline Flush) 10 ml FLUSH ASDIRECTED PRN PRN Reason: Keep Vein Open Last Admin: 06/14/17 16:38 Dose: 10 ml Sodium Chloride (Saline Flush) 2.5 ml FLUSH ASDIRECTED PRN PRN Reason: Keep Vein Open Last Admin: 06/14/17 16:38 Dose: 2.5 ml Discontinued Medications Ephedrine Sulfate (Ephedrine Sulfate) Confirm Administered Dose 50 mg .ROUTE .STK-MED ONE Stop: 06/15/17 13:32 Fentanyl (Sublimaze) Confirm Administered Dose 100 mcg .ROUTE .STK-MED ONE Stop: 06/15/17 12:41 Fentanyl (Sublimaze) Confirm Administered Dose 100 mcg .ROUTE .STK-MED ONE Stop: 06/15/17 13:52 Sodium Chloride (Normal Saline) 1,000 mls @ 999 mls/hr IV STAT ONE Stop: 06/14/17 17:01 Last Admin: 06/14/17 16:38 Dose: 999 mls/hr Sodium Chloride (Normal Saline) 1,000 mls @ 999 mls/hr IV STAT ONE Stop: 06/14/17 18:59 Last Admin: 06/14/17 18:11 Dose: 999 mls/hr Ketorolac Tromethamine (Toradol) 30 mg IVPUSH ONETIME ONE Stop: 06/15/17 13:50 Last Admin: 06/15/17 15:40 Dose: 30 mg Methylergonovine Maleate (Methergine) 0.2 mg IM ONETIME ONE Stop: 06/14/17 18:02 Last Admin: 06/14/17 18:17 Dose: 0.2 mg Methylergonovine Maleate (Methergine) Confirm Administered Dose 0.2 mg .ROUTE .STK-MED ONE Stop: 06/14/17 18:09 Last Admin: 06/14/17 18:22 Dose: Not Given Methylergonovine Maleate (Methergine) Confirm Administered Dose 0.2 mg .ROUTE .STK-MED ONE Stop: 06/15/17 13:27 Midazolam HCl (Versed 1 Mg/Ml) Confirm Administered Dose 2 mg .ROUTE .STK-MED ONE Stop: 06/15/17 12:41 Misoprostol (Cytotec) 200 mcg PO ONETIME ONE Stop: 06/14/17 17:01 Last Admin: 06/14/17 17:30 Dose: 200 mcg Non-Formulary Medication (Marian Ah Absorbable Hemostat) Confirm Administered Dose 1 each .ROUTE .STK-MED ONE Stop: 06/15/17 13:35 Ondansetron HCl (Zofran) 4 mg IVPUSH ONETIME ONE Stop: 06/14/17 16:31 Last Admin: 06/14/17 16:37 Dose: 4 mg Ondansetron HCl (Zofran) Confirm Administered Dose 4 mg .ROUTE .STK-MED ONE Stop: 06/15/17 12:40 Propofol (Diprivan 20 Ml) Confirm Administered Dose 200 mg .ROUTE .STK-MED ONE Stop: 06/15/17 12:41 Tranexamic Acid (Cyklokapron) Confirm Administered Dose 1,000 mg .ROUTE .STK- MED ONE Stop: 06/15/17 13:35 - Exam Wound/Incisions: Healing Well General: Alert, Oriented HEENT: Pupils Equal Neck: Supple Lungs: Clear to Auscultation, Normal Respiratory Effort Cardiovascular: Regular Rate, Regular Rhythm GI/Abdominal Exam: Normal Bowel Sounds, Soft, Non-Tender, No Organomegaly, No Distention, No Abnormal Bruit, No Mass, Pelvis Stable Extremities: Normal Inspection, Normal Range of Motion, Non-Tender, No Pedal Edema, Normal Capillary Refill Skin: Warm, Dry, Intact Neurological: No New Focal Deficit Psy/Mental Status: Alert, Normal Affect, Normal Mood - Problem List Review Problem List Initiated/Reviewed/Updated: Yes - My Orders Last 24 Hours: Active Orders 24 hr Category Date Time Status Patient Status [ADT] Routine ADT 06/15/17 13:49 Active Antiembolic Devices [RC] PER UNIT ROUTINE Care 06/15/17 13:50 Active Notify Provider Vital Signs [RC] ASDIRECTED Care 06/15/17 13:49 Active Oxygen Therapy [RC] ASDIRECTED Care 06/15/17 13:49 Active RT Incentive Spirometry [RC] Q2HWA Care 06/15/17 13:49 Active Up With Assistance [RC] PER UNIT ROUTINE Care 06/15/17 13:49 Active Up ad Latricia [RC] PER UNIT ROUTINE Care 06/15/17 13:49 Active Urinary Catheter Removal [RC] Per Unit Routine Care 06/15/17 13:49 Active Vital Signs [RC] PER UNIT ROUTINE Care 06/15/17 13:49 Active Regular Diet [DIET] Diet 06/16/17 Breakfast Active Acetaminophen/oxyCODONE [Percocet 325-5 MG] Med 06/15/17 13:49 Active 1 tab PO Q4H PRN Acetaminophen/oxyCODONE [Percocet 325-5 MG] Med 06/15/17 13:49 Active 2 tab PO Q4H PRN Ketorolac [Toradol] Med 06/15/17 20:00 Active 30 mg IVPUSH Q6H PRN Morphine Med 06/15/17 13:49 Active 2 mg IVPUSH Q2H PRN Morphine Med 06/15/17 13:49 Active 4 mg IVPUSH Q2H PRN Ondansetron [Zofran] Med 06/15/17 13:49 Active 4 mg IVPUSH Q6H PRN Promethazine [Phenergan] Med 06/15/17 13:49 Active 25 mg IM Q6H PRN Sodium Chloride 0.9% [Normal Saline] 250 ml Med 06/15/17 10:15 Active IV ASDIRECTED fentaNYL [Sublimaze] Med 06/15/17 13:44 Active 50 mcg IVPUSH SEECOMMENT PRN Peripheral IV Discontinue [OM.PC] Routine Oth 06/15/17 13:49 Ordered Sequential Compression Device [OM.PC] Per Unit Routine Oth 06/15/17 13:49 Ordered Resuscitation Status Routine Resus Stat 06/15/17 13:49 Ordered Medication Orders Escitalopram Oxalate (Lexapro) 20 mg PO DAILY [facility] Last Admin: 06/16/17 09:11 Dose: 20 mg Admin: 06/16/17 08:47 Dose: Admin: 06/15/17 20:23 Dose: 20 mg Admin: 06/14/17 20:31 Dose: 20 mg Fentanyl (Sublimaze) 50 mcg IVPUSH SEECOMMENT PRN PRN Reason: Pain (moderate 4-6) Lactated Ringer's (Ringers, Lactated) 1,000 mls @ 125 mls/hr IV ASDIRECTED [facility] Sodium Chloride (Normal Saline) 250 mls @ 25 mls/hr IV ASDIRECTED [facility] Ketorolac Tromethamine (Toradol) 30 mg IVPUSH Q6H PRN PRN Reason: Pain (severe 7-10) Stop: 06/20/17 20:01 Last Admin: 06/15/17 21:47 Dose: 30 mg Morphine Sulfate (Morphine) 2 mg IVPUSH Q2H PRN PRN Reason: Pain (severe 7-10) Morphine Sulfate (Morphine) 4 mg IVPUSH Q2H PRN PRN Reason: Pain (severe 7-10) Ondansetron HCl (Zofran) 4 mg IVPUSH Q6H PRN PRN Reason: Nausea/Vomiting Oxycodone/Acetaminophen (Percocet 325-5 Mg) 1 tab PO Q4H PRN PRN Reason: Pain (moderate 4-6) Oxycodone/Acetaminophen (Percocet 325-5 Mg) 2 tab PO Q4H PRN PRN Reason: Pain (moderate 4-6) Promethazine HCl (Phenergan) 25 mg IM Q6H PRN PRN Reason: Nausea/Vomiting Sodium Chloride (Saline Flush) 10 ml FLUSH ASDIRECTED PRN PRN Reason: Keep Vein Open Last Admin: 06/14/17 16:38 Dose: 10 ml Sodium Chloride (Saline Flush) 2.5 ml FLUSH ASDIRECTED PRN PRN Reason: Keep Vein Open Last Admin: 06/14/17 16:38 Dose: 2.5 ml - Assessment Assessment (Free Text/Narrative):: Status post a D&E/D&C postoperative day #1 the patient last on stable lab work is stable vaginal and intrauterine pack is removed bleeding after removal. - Plan Plan (Free Text/Narrative):: I'm planning to transfuse her 1 more unit of packed cells and observe her for the rest of the day is still no bleeding we may consider sending her home this evening
[2017-06-16] MEDS ORDERED: Acetaminophen 500 MG Tab PO ONE (14:51)
--- NOTE | 2017-06-16 16:25 | PCM.DCSUM1 ---
Discharge Summary - Discharge Data Discharge Date: 06/16/17 Discharge Disposition: Home, Self-Care 01 Condition: Stable - Patient Summary/Data Operative Procedure(s) Performed: D&E - Patient Instructions Diet: Usual Diet as Tolerated Activity: As Tolerated Driving: Do Not Drive Showering/Bathing: August Shower Notify Provider of: Fever, Increased Pain, Swelling and Redness, Nausea and/or Vomiting - Discharge Plan Home Medications: Home Meds Escitalopram [Lexapro] 20 mg PO DAILY 06/14/17 [History] Norgestimate-Ethinyl Estradiol [Trinessa Lo Tablet] 1 tab PO DAILY 06/14/17 [ History] Patient Handouts: Hemorrhage, Blood Transfusion, Adult, Care After, [id number] Referrals: Colby Aguilar MD [Primary Care Provider] - - General Info Date of Service: 06/16/17 Functional Status: Reports: Pain Controlled - Review of Systems General: Reports: No Symptoms HEENT: Reports: No Symptoms Pulmonary: Reports: No Symptoms Cardiovascular: Reports: No Symptoms Gastrointestinal: Reports: No Symptoms Genitourinary: Reports: No Symptoms Musculoskeletal: Reports: No Symptoms Skin: Reports: No Symptoms Neurological: Reports: No Symptoms Psychiatric: Reports: No Symptoms - Patient Data Vitals - Most Recent: Last Vital Signs Temp 38.7 C H 06/16/17 15:40 Pulse 96 06/16/17 15:40 Resp 16 06/16/17 15:40 BP 105/58 L 06/16/17 15:40 Pulse Ox 98 06/16/17 15:40 Orthostatic Blood Pressure [ 108/58 Sitting] Weight - Most Recent: 83.007 kg I&O - Last 24 hours: Intake & Output 06/16/17 06/16/17 06/16/17 06:59 14:59 22:59 Intake Total 1999 18 332 Output Total 1650 Balance 350 18 332 Lab Results - Last 24 hrs: Laboratory Results - last 24 hr 06/15/17 06/16/17 06/16/17 Range/Units 19:59 05:42 05:42 WBC 6.37 (4.0-11.0) K/uL RBC 2.93 L (4.30-5.90) M/uL Hgb 9.2 L 8.8 L (12.0-16.0) g/dL Hct 26.1 L 25.3 L (36.0-46.0) % MCV 86.3 (80.0-98.0) fL MCH 30.0 (27.0-32.0) pg MCHC 34.8 (31.0-37.0) g/dL RDW Std Deviation 43.9 (28.0-62.0) fl RDW Coeff of Kadie 14 (11.0-15.0) % Plt Count 118 L (150-400) K/uL MPV 10.70 (7.40-12.00) fL Neut % (Auto) 57.4 (48.0-80.0) % Lymph % (Auto) 28.9 (16.0-40.0) % [place] % (Auto) 8.8 (0.0-15.0) % Eos % (Auto) 4.6 (0.0-7.0) % Baso % (Auto) 0.3 (0.0-1.5) % Neut # (Auto) 3.7 (1.4-5.7) K/uL Lymph # (Auto) 1.8 (0.6-2.4) K/uL [place] # (Auto) 0.6 (0.0-0.8) K/uL Eos # (Auto) 0.3 (0.0-0.7) K/uL Baso # (Auto) 0.0 (0.0-0.1) K/uL Nucleated RBC % 0.0 /100WBC Nucleated RBCs # 0 K/uL Sodium 141 (136-145) mmol/L Potassium 4.2 (3.5-5.1) mmol/L Chloride 108 H (98-107) mmol/L Carbon Dioxide 25.2 (21.0-32.0) mmol/L BUN 11 (7.0-18.0) mg/dL Creatinine 0.8 (0.6-1.0) mg/dL Est Cr Clr Drug Dosing 100.90 mL/min Estimated GFR (MDRD) > 60.0 ml/min Glucose 87 (74-106) mg/dL Calcium 7.8 L (8.5-10.1) mg/dL Med Orders - Current: Current Medications Escitalopram Oxalate (Lexapro) 20 mg PO DAILY REINA Last Admin: 06/16/17 09:11 Dose: 20 mg Fentanyl (Sublimaze) 50 mcg IVPUSH SEECOMMENT PRN PRN Reason: Pain (moderate 4-6) Lactated Ringer's (Ringers, Lactated) 1,000 mls @ 125 mls/hr IV ASDIRECTED REINA Sodium Chloride (Normal Saline) 250 mls @ 25 mls/hr IV ASDIRECTED REINA Ketorolac Tromethamine (Toradol) 30 mg IVPUSH Q6H PRN PRN Reason: Pain (severe 7-10) Stop: 06/20/17 20:01 Last Admin: 06/15/17 21:47 Dose: 30 mg Morphine Sulfate (Morphine) 2 mg IVPUSH Q2H PRN PRN Reason: Pain (severe 7-10) Morphine Sulfate (Morphine) 4 mg IVPUSH Q2H PRN PRN Reason: Pain (severe 7-10) Ondansetron HCl (Zofran) 4 mg IVPUSH Q6H PRN PRN Reason: Nausea/Vomiting Oxycodone/Acetaminophen (Percocet 325-5 Mg) 1 tab PO Q4H PRN PRN Reason: Pain (moderate 4-6) Oxycodone/Acetaminophen (Percocet 325-5 Mg) 2 tab PO Q4H PRN PRN Reason: Pain (moderate 4-6) Promethazine HCl (Phenergan) 25 mg IM Q6H PRN PRN Reason: Nausea/Vomiting Sodium Chloride (Saline Flush) 10 ml FLUSH ASDIRECTED PRN PRN Reason: Keep Vein Open Last Admin: 06/14/17 16:38 Dose: 10 ml Sodium Chloride (Saline Flush) 2.5 ml FLUSH ASDIRECTED PRN PRN Reason: Keep Vein Open Last Admin: 06/14/17 16:38 Dose: 2.5 ml Discontinued Medications Acetaminophen (Tylenol Extra Strength) 1,000 mg PO NOW ONE Stop: 06/16/17 14:52 Last Admin: 06/16/17 14:58 Dose: 1,000 mg Ephedrine Sulfate (Ephedrine Sulfate) Confirm Administered Dose 50 mg .ROUTE .STK-MED ONE Stop: 06/15/17 13:32 Fentanyl (Sublimaze) Confirm Administered Dose 100 mcg .ROUTE .STK-MED ONE Stop: 06/15/17 12:41 Fentanyl (Sublimaze) Confirm Administered Dose 100 mcg .ROUTE .STK-MED ONE Stop: 06/15/17 13:52 Sodium Chloride (Normal Saline) 1,000 mls @ 999 mls/hr IV STAT ONE Stop: 06/14/17 17:01 Last Admin: 06/14/17 16:38 Dose: 999 mls/hr Sodium Chloride (Normal Saline) 1,000 mls @ 999 mls/hr IV STAT ONE Stop: 06/14/17 18:59 Last Admin: 06/14/17 18:11 Dose: 999 mls/hr Ketorolac Tromethamine (Toradol) 30 mg IVPUSH ONETIME ONE Stop: 06/15/17 13:50 Last Admin: 06/15/17 15:40 Dose: 30 mg Methylergonovine Maleate (Methergine) 0.2 mg IM ONETIME ONE Stop: 06/14/17 18:02 Last Admin: 06/14/17 18:17 Dose: 0.2 mg Methylergonovine Maleate (Methergine) Confirm Administered Dose 0.2 mg .ROUTE .STK-MED ONE Stop: 06/14/17 18:09 Last Admin: 06/14/17 18:22 Dose: Not Given Methylergonovine Maleate (Methergine) Confirm Administered Dose 0.2 mg .ROUTE .STK-MED ONE Stop: 06/15/17 13:27 Midazolam HCl (Versed 1 Mg/Ml) Confirm Administered Dose 2 mg .ROUTE .STK-MED ONE Stop: 06/15/17 12:41 Misoprostol (Cytotec) 200 mcg PO ONETIME ONE Stop: 06/14/17 17:01 Last Admin: 06/14/17 17:30 Dose: 200 mcg Non-Formulary Medication (Marian Ah Absorbable Hemostat) Confirm Administered Dose 1 each .ROUTE .STK-MED ONE Stop: 06/15/17 13:35 Ondansetron HCl (Zofran) 4 mg IVPUSH ONETIME ONE Stop: 06/14/17 16:31 Last Admin: 06/14/17 16:37 Dose: 4 mg Ondansetron HCl (Zofran) Confirm Administered Dose 4 mg .ROUTE .STK-MED ONE Stop: 06/15/17 12:40 Propofol (Diprivan 20 Ml) Confirm Administered Dose 200 mg .ROUTE .STK-MED ONE Stop: 06/15/17 12:41 Tranexamic Acid (Cyklokapron) Confirm Administered Dose 1,000 mg .ROUTE .[employer]- [employer] ONE Stop: 06/15/17 13:35 - Exam General: Reports: Alert, Oriented HEENT: Reports: Pupils Equal, Pupils Reactive, EOMI, Mucous Membr. Moist/[place] Neck: Reports: Supple Lungs: Reports: Clear to Auscultation, Normal Respiratory Effort Cardiovascular: Reports: Regular Rate, Regular Rhythm GI/Abdominal Exam: Normal Bowel Sounds, Soft, Non-Tender, No Organomegaly, No Distention, No Abnormal Bruit, No Mass, Pelvis Stable (Female) Exam: Normal External Exam, Normal Speculum Exam, Normal Bimanual Exam Rectal (Female) Exam: Normal Exam, Normal Rectal Tone Back Exam: Reports: Normal Inspection, Full Range of Motion Extremities: Normal Inspection, Normal Range of Motion, Non-Tender, No Pedal Edema, Normal Capillary Refill Skin: Reports: Warm, Dry, Intact Wound/Incisions: Reports: Healing Well Neurological: Reports: No New Focal Deficit Psy/Mental Status: Reports: Alert, Normal Affect, Normal Mood *Q Meaningful Use (DIS) - VTE *Q VTE Criteria *Q: - Stroke *Q Stroke Criteria *Q: - AMI *Q AMI Criteria *Q:
[2017-06-16 17:07] VITALS: BP 108/65
== END 2017-06-16 17:00 | disposition home or self-care (01) ==
LOC: MW.ED 15:42 → MW.OB 18:05 → MW.MS 06-16 09:50
PROVIDERS: ADMIT Obstetrics & Gynecology; ATTEND Obstetrics & Gynecology
DX: O72.0 Third-stage hemorrhage (principal); F32.9 Major depressive disorder, single episode, unspecified; Z79.899 Other long term (current) drug therapy; Z79.890 Hormone replacement therapy; Z90.89 Acquired absence of other organs
CPT/HCPCS: 36415; 36430; 59812; 76856; 76857; 80048; 84702; 84703; 85014; 85018; 85025; 85027; 85610; 96361; 96372; 96374; 96375; 99285; A9270; G0378; J1885; J2210; J2250; J2405; J3010; J7040; P9016; 00940; 86850; 86900; 86901; 86920; 86921; 86922; 88305; 96360; 99284; J2704

== ENCOUNTER 2019-05-23 05:41 | Inpatient (IN) | payer BC ==
[2019-05-23] MEDS ORDERED: Misoprostol 200 MCG Tab PO PRN (05:51)
[2019-05-23] MEDS ORDERED: Carboprost Tromethamine 250 MCG/1 ML Amp IM PRN (05:51)
[2019-05-23] MEDS ORDERED: Butorphanol 1 MG/ML SDV IVPUSH PRN (05:51)
[2019-05-23] MEDS ORDERED: Water For Irrigation,Sterile 1,000 ML Container IRR PRN (05:51)
[2019-05-23] MEDS ORDERED: Sodium Chloride 0.9% 10 ML SDV IV PRN (05:51)
[2019-05-23] MEDS ORDERED: Nalbuphine 10 MG/1 ML Vial IVPUSH PRN ×2 (05:51→09:42)
[2019-05-23] MEDS ORDERED: Methylergonovine 0.2 MG/1 ML Amp IM PRN (05:51)
[2019-05-23] MEDS ORDERED: Lidocaine 1% 50 ML MDV INJECT PRN (05:51)
[2019-05-23] MEDS ORDERED: Sodium Chloride 0.9% 10 ML Syringe FLUSH PRN (05:51)
[2019-05-23] MEDS ORDERED: Citric Acid/Sodium Citrate Solution 30 ML Cup PO ONE (05:51)
[2019-05-23] MEDS ORDERED: Sodium Chloride 0.9% 2.5 ML Syringe FLUSH PRN (05:51)
[2019-05-23] MEDS ORDERED: Tranexamic Acid 1,000 MG in Sodium Chloride 0.9% 100 ML IV PRN (05:51)
[2019-05-23] MEDS ORDERED: Oxytocin/0.9 % Sodium Chloride 30 UNIT/500 ML BAG IV SCH ×2 (06:00)
[2019-05-23] MEDS ORDERED: Lactated Ringers 1,000 ML IV SCH (06:00)
[2019-05-23] MEDS: Lactated Ringers 1,000 ML IV SCH ×3 (06:08→07:59)
--- NOTE | 2019-05-23 06:59 | PCM.PREANE ---
Preanesthetic Assessment - Anesthesia/Transfusion/Family Hx Anesthesia History: Prior Anesthesia Without Reaction Family History of Anesthesia Reaction: No Transfusion History: Prior Transfusion Without Reaction Intubation History: Unknown - Review of Systems General: No Symptoms Pulmonary: No Symptoms Cardiovascular: No Symptoms Gastrointestinal: No Symptoms Neurological: No Symptoms Other: Reports: None - Physical Assessment Height: 5 ft 7 in Weight: 92.533 kg ASA Class: 2 Mental Status: Alert & Oriented x3 Airway Class: Mallampati = 2 Dentition: Reports: Normal Dentition Thyro-Mental Finger Breadths: 3 Mouth Opening Finger Breadths: 3 ROM/Head Extension: Full Lungs: Clear to Auscultation, Normal Respiratory Effort Cardiovascular: Regular Rate, Regular Rhythm - Lab Values: Laboratory Last Values WBC 6.94 K/uL (4.0-11.0) 05/23/19 05:50 RBC 3.93 M/uL (4.30-5.90) L 05/23/19 05:50 Hgb 11.1 g/dL (12.0-16.0) L 05/23/19 05:50 Hct 33.2 % (36.0-46.0) L 05/23/19 05:50 MCV 84.5 fL (80.0-98.0) 05/23/19 05:50 MCH 28.2 pg (27.0-32.0) 05/23/19 05:50 MCHC 33.4 g/dL (31.0-37.0) 05/23/19 05:50 RDW Std Deviation 40.2 fl (28.0-62.0) 05/23/19 05:50 RDW Coeff of Kadie 13 % (11.0-15.0) 05/23/19 05:50 Plt Count 129 K/uL (150-400) L 05/23/19 05:50 MPV 12.00 fL (7.40-12.00) 05/23/19 05:50 Nucleated RBC % 0.0 /100WBC 05/23/19 05:50 Nucleated RBCs # 0 K/uL 05/23/19 05:50 Blood Type O POSITIVE 05/23/19 05:50 Antibody Screen NEGATIVE 05/23/19 05:50 - Allergies Allergies/Adverse Reactions: Allergies Allergy/AdvReac Type Severity Reaction Status Date / Time corn chips Allergy "throat Uncoded 05/17/19 10:20 closes" - Blood Blood Available: No - Anesthesia Plan Pre-Op Medication Ordered: None - Acknowledgements Anesthesia Type Planned: Spinal (general anesthesia back-up plan) Pt an Appropriate Candidate for the Planned Anesthesia: Yes Alternatives and Risks of Anesthesia Discussed w Pt/Guardian: Yes Pt/Guardian Understands and Agrees with Anesthesia Plan: Yes PreAnesthesia Questionnaire - Past Health History Medical/Surgical History: Denies Medical/Surgical History HEENT History: Reports: None Cardiovascular History: Reports: None Respiratory History: Reports: None Other Gastrointestinal History: occasional heartburn with Genitourinary History: Reports: None [employer] History: Reports: Musculoskeletal History: Reports: None Neurological History: Reports: Migraines Other Neuro History: migraines in the past Psychiatric History: Reports: Anxiety, Depression Endocrine/Metabolic History: Reports: None Other Endocrine/Metabolic History: hypoglycemia Hematologic History: Reports: Blood Transfusion(s) Other Hematologic History: blood transfusion for post bleed Immunologic History: Reports: None Oncologic (Cancer) History: Reports: None Dermatologic History: Reports: None - Infectious Disease History Infectious Disease History: Reports: None - Past Surgical History Head Surgeries/Procedures: Reports: None HEENT Surgical History: Reports: None Cardiovascular Surgical History: Reports: None Respiratory Surgical History: Reports: None GI Surgical History: Reports: None Female Surgical History: Reports: Section, Dilitation & Evacuation Endocrine Surgical History: Reports: None Neurological Surgical History: Reports: None Musculoskeletal Surgical History: Reports: None Oncologic Surgical History: Reports: None - SUBSTANCE USE Smoking Status *Q: Never Smoker Recreational Drug Use History: No - HOME MEDS Home Medications: Home Meds Escitalopram [Lexapro] 20 mg PO DAILY 06/14/17 [History] Vits #93/Iron Fum/FA [ Formula Tablet] 1 tab PO DAILY 03/23/19 [History] Calcium Carbonate [Tums] 1 tab.chew CHEW ASDIRECTED PRN 05/17/19 [History] - CURRENT (IN HOUSE) MEDS Current Meds: Current Medications Butorphanol Tartrate (Stadol) 1 mg IVPUSH Q1H PRN PRN Reason: Pain Carboprost Tromethamine (Hemabate Ds) 250 mcg IM ASDIRECTED PRN PRN Reason: Post Hemorrhage Lactated Ringer's (Ringers, Lactated) 1,000 mls @ 150 mls/hr IV ASDIRECTED [facility] Lactated Ringer's (Ringers, Lactated) 1,000 mls @ 500 mls/hr IV BOLUS [facility] Last Admin: 05/23/19 06:44 Dose: 500 mls/hr Oxytocin/Sodium Chloride (Oxytocin 30 Unit/500 Ml-Ns) 30 unit in 500 mls @ 999 mls/hr IV TITRATE [facility] Oxytocin/Sodium Chloride (Oxytocin 30 Unit/500 Ml-Ns) 30 unit in 500 mls @ 250 mls/hr IV TITRATE [facility] Tranexamic Acid 1,000 mg/ (Sodium Chloride) 110 mls @ 660 mls/hr IV ONETIME PRN PRN Reason: Bleeding Lidocaine HCl (Xylocaine 1%) 50 ml INJECT ONETIME PRN PRN Reason: Laceration repair Methylergonovine Maleate (Methergine) 0.2 mg IM ASDIRECTED PRN PRN Reason: Post Hemorrhage Misoprostol (Cytotec) 200 mcg PO ONETIME PRN PRN Reason: Post Hemorrhage Nalbuphine HCl (Nubain) 10 mg IVPUSH Q1H PRN PRN Reason: Pain (severe 7-10) Sodium Chloride (Saline Flush) 10 ml FLUSH ASDIRECTED PRN PRN Reason: Keep Vein Open Sodium Chloride (Saline Flush) 2.5 ml FLUSH ASDIRECTED PRN PRN Reason: Keep Vein Open Sodium Chloride (Normal Saline) 10 ml IV ASDIRECTED PRN PRN Reason: IV Use Sterile Water (Sterile Water For Irrigation) 1,000 ml IRR ASDIRECTED PRN PRN Reason: delivery Discontinued Medications Citric Acid/Sodium Citrate (Bicitra Solution) 30 ml PO ONETIME ONE Stop: 05/23/19 05:52
[2019-05-23] MEDS ORDERED: ePHEDrine 50 MG/ML SDV ONE (07:10)
[2019-05-23] MEDS ORDERED: Ondansetron 4 MG/2 ML SDV ONE (07:10)
[2019-05-23] MEDS ORDERED: Morphine PF 10 MG/10 ML SDV ONE (07:10)
[2019-05-23] MEDS ORDERED: Phenylephrine 1% 10 MG/ML SDV ONE (07:10)
[2019-05-23] MEDS ORDERED: Oxytocin 10 Units/1 ML SDV ONE ×2 (07:11)
[2019-05-23] MEDS ORDERED: Sodium Chloride 0.9% 20 ML ONE ×2 (07:19→07:32)
[2019-05-23] MEDS ORDERED: ceFAZolin 2 GM in Premix Bag 1 BAG IV ONE (07:28)
[2019-05-23] MEDS ORDERED: ceFAZolin 1 GM Vial ONE (07:32)
[2019-05-23] MEDS ORDERED: Octyl 2-Cyanoacrylate 1 Tube ONE (08:49)
--- NOTE | 2019-05-23 09:35 | PCM.OPNOTE ---
- General Post-Op/Procedure Note Date of Surgery/Procedure: 05/23/19 Operative Procedure(s): repeat low transverse with excision of left paratubal cyst. Findings: Baby A Liveborn male 8/9 weight 6#14oz Baby B Liveborn female 8/9 weight 5#12oz Left paratubal cyst excised after consent otherwise normal pelvic anatomy. Pre Op Diagnosis: 38 weeks, diamniotic, dichorionic twin gestation; previous c- section. Post-Op Diagnosis: Same and left paratubal cyst. Anesthesia Technique: Spinal Primary Surgeon: Wendie Wolf Secondary Surgeon: Beverley Murrell Anesthesia Provider: Delmy Swan Professor Of Criminal Justice: Jonathan Mccurdy Pathology: Placenta to pathology left paratubal cyst requested to be sent, but discarded by food technician. Fluid Replacement, Intraop: 1,000 EBL in mLs: 500 Complications: None Known Condition: Good
[2019-05-23] MEDS ORDERED: Acetaminophen/oxyCODONE 325-5 MG Tab PO PRN (09:42)
[2019-05-23] MEDS ORDERED: diphenhydrAMINE 50 MG/ML SDV IVPUSH PRN (09:42)
[2019-05-23] MEDS ORDERED: Naloxone 0.4 MG/ML Syringe IVPUSH PRN (09:42)
[2019-05-23] MEDS ORDERED: Ondansetron 4 MG/2 ML SDV IVPUSH PRN (09:42)
[2019-05-23] MEDS ORDERED: fentaNYL 100 MCG/2 ML SDV IVPUSH PRN (09:42)
[2019-05-23] MEDS ORDERED: Ketorolac 30 MG/ML SDV ONE (10:08)
[2019-05-23] MEDS ORDERED: Witch Hazel Medicated Pads 40/Jar TOP PRN (10:25)
[2019-05-23] MEDS ORDERED: oxyCODONE 5 MG Tab PO PRN (10:25)
[2019-05-23] MEDS ORDERED: Acetaminophen 500 MG Tab PO PRN ×2 (10:25)
[2019-05-23] MEDS ORDERED: Bisacodyl 10 MG Supp RECTAL PRN (10:25)
[2019-05-23] MEDS ORDERED: Ibuprofen 400 MG Tab PO PRN (10:25)
[2019-05-23] MEDS ORDERED: Benzocaine/Menthol 20%-0.5% Spray 78 GM Cannister TOP PRN (10:25)
[2019-05-23] MEDS ORDERED: Lanolin 100% Cream 7 GM Tube TOP PRN (10:25)
[2019-05-23] MEDS ORDERED: Sodium Chloride 0.9% 0 ML ONE (10:37)
--- NOTE | 2019-05-23 10:52 | PCM.POSTAN ---
POST ANESTHESIA ASSESSMENT - MENTAL STATUS Mental Status: Alert, Oriented - RESPIRATORY Respiratory Status: Respiratory Rate WNL, Airway Patent, O2 Saturation Stable - CARDIOVASCULAR CV Status: Pulse Rate WNL, Blood Pressure Stable - GASTROINTESTINAL GI Status: No Symptoms - POST OP HYDRATION Hydration Status: Adequate & Stable - OBSERVATIONS Free Text/Narrative:: No anesthesia problems
--- NOTE | 2019-05-23 15:41 | OR ---
SURGEON: Wendie Wolf M.D. DATE OF PROCEDURE: 05/23/2019 PREOPERATIVE DIAGNOSES: A 38-week intrauterine , diamniotic-dichorionic twin gestation, previous delivery. POSTOPERATIVE DIAGNOSES: A 38-week intrauterine , diamniotic-dichorionic twin gestation, previous delivery, and left paratubal cyst. PRIMARY SURGEON: Wendie Wolf MD. ANESTHESIA: Spinal. ESTIMATED BLOOD LOSS: 500 mL. FLUIDS: 1000 mL of crystalloid. FINDINGS: Baby A liveborn male, cephalic presentation, score of 8 and 9, weighing 6 pounds 14 ounces. Baby B liveborn female, also cephalic presentation, score of 8 and 9, weighing 5 pounds 12 ounces. Normal-appearing uterus. Left paratubal cyst, approximately 3.5 cm. Right tube and ovary appeared normal. COMPLICATIONS: None known. DISPOSITION: Stable to Recovery. BRIEF HISTORY: This is a 33-year-old female, G2, P1, who presents at 38 weeks' gestation with diamniotic-dichorionic twin gestation. She has been followed throughout the in association with [facility]. Twin B did have a villous cord insertion of the placenta and some growth restriction through the . However, monitoring and growth have been normal over the past two months. Therefore, she has been allowed to continue with the through 38 weeks' gestation. After discussion of options, she desires to proceed with a repeat delivery, declines a vaginal trial of labor with risks for section being bleeding; infection; injury to bowel, bladder, blood vessels, ureters, or other organs; risk of thromboembolic event; and risk of anesthesia. Understanding all these risks, she does desire to proceed. Note is made of a late hemorrhage with her last delivery related to a retained portion of the placenta. DESCRIPTION OF PROCEDURE: With the patient in left tilt position, under adequate spinal analgesia, the abdomen was prepped with chlorhexidine and draped in the usual fashion for abdominal surgery. SCDs were in place. Gomez catheter had been placed. An appropriate time-out was held. After documentation of adequate analgesia, the abdomen was appropriately draped. SCDs were in place, and she had received 2 g of Ancef IV. After documentation of adequate analgesia, the prior cicatrix was excised with a scalpel and the incision was carried through the subcutaneous tissue to the fascia, which was scored transversely in the midline. The fascial incision was extended laterally using curved Graves scissors. The fascia was elevated from the underlying rectus muscle using sharp and blunt dissection. The rectus muscles were then using a hemostat and the peritoneum was entered. A finger was placed in the peritoneal cavity. There were no adhesions, therefore, the incision was extended using sharp and blunt dissection. The Bill O retractor was placed into the abdominal cavity. The visceral peritoneum over the lower uterine segment was incised and an adequate bladder flap was developed. A transverse curvilinear incision was made over the lower uterine segment with a scalpel. A finger was used to enter the uterine cavity. The amniotic membranes were then ruptured and the head of Baby A was delivered. The infant was bulb suctioned by nose and mouth and the cord was clamped x2 with a single clamp and a straight clamp on the umbilical cord, and the was handed to Dr. Lennon who was present for delivery. The infant was a liveborn male, score of 8 and 9, weighing 6 pounds 14 ounces. The fetus B then descended in a cephalic presentation. The head and the amniotic membranes were brought to the incision. Amniotic membranes were then ruptured. The head of fetus B was then delivered. Bulb suctioned by nose and mouth with subsequent delivery of the infant's shoulders and body without any difficulty, and the was further bulb suctioned. The cord was doubly clamped and cut, placing 2 cord clamps on the umbilicus and a curved clamp on the placental side, and the infant was handed again to Dr. Lennon in attendance at delivery. This was a liveborn female, score of 8 and 9, weighing 5 pounds 12 ounces. Cord blood was collected for cord ABGs as well as routine cord blood sampling. Pitocin was initiated after delivery of the to assist with delivery of the placenta, which was delivered with the assistance of manual extraction after fundal massage. I then cleaned the uterine cavity with a dry laparotomy tape. I opened the cervix with ring forceps. The uterine incision was closed with a running lock suture of 0 Polysorb followed by an imbricating layer of 0 Polysorb. The uterine incision was hemostatic. Therefore, the pericolic gutters were cleaned with a wet laparotomy tape. The tubes and ovaries were inspected. There was a 3 to 4 cm left paratubal cyst. I did offer to remove this and obtained verbal consent from Romelia. The cyst was grasped with an Allis clamp and the overlying peritoneum was opened. The cyst was removed and handed to the sterilization technician to be sent to Pathology. However, the cyst was placed in with the placenta and the placenta was sent to Pathology with the cyst in it, and therefore, the cyst was not sent as a separate specimen. The patient was notified of this. The uterine incision was again inspected, was hemostatic. The rectus muscle and peritoneum were loosely approximated in midline using a running mattress suture of 0 Polysorb. The fascia was closed with a running suture of 0 Polysorb, and after the posterior aspect of the fascia was inspected and was hemostatic, there was a small defect in the fascia just above the incision and this was closed with a running suture of 0 Polysorb prior to closure of the fascia. The subcutaneous tissue was irrigated, any areas of bleeding that were noted were cauterized. The skin was closed with a running subcuticular suture of 3-0 Monocryl followed by Dermabond. Final sponge, needle, and instrument counts were correct. There were no known complications. The patient and babies are in Recovery in good condition. AYLEEN / TRAE /[id number]
[2019-05-23] MEDS: Ketorolac 30 MG/ML SDV IVPUSH SCH ×2 (16:29→22:22)
[2019-05-23] MEDS: Docusate Sodium 100 MG Cap PO PRN (22:24)
[2019-05-24] MEDS: Ketorolac 30 MG/ML SDV IVPUSH SCH ×2 (04:33→10:31)
--- NOTE | 2019-05-24 08:31 | PCM48HPAN ---
Post Anesthesia Note - EVALUATION WITHIN 48HRS OF ANESTHETIC Vital Signs in Normal Range: Yes Patient Participated in Evaluation: Yes Respiratory Function Stable: Yes Airway Patent: Yes Cardiovascular Function Stable: Yes Hydration Status Stable: Yes Pain Control Satisfactory: Yes Nausea and Vomiting Control Satisfactory: Yes Mental Status Recovered: Yes Vital Signs: Last Vital Signs Temp 36.1 C 05/24/19 07:25 Pulse 87 05/24/19 08:00 Resp 17 05/24/19 08:00 BP 98/50 L 05/24/19 07:25 Pulse Ox 97 05/24/19 08:00 - COMMENTS/OBSERVATIONS Free Text/Narrative:: The patient tolerated the procedure well. Has no complaints at this time. There were no apparent anesthetic complications at this time. Discharge from anesthesia care.
--- NOTE | 2019-05-24 09:21 | PCM.PNPP ---
- General Info Date of Service: 05/24/19 Functional Status: Reports: Pain Controlled, Tolerating Diet, Ambulating, Urinating - Review of Systems General: Reports: No Symptoms HEENT: Reports: No Symptoms Pulmonary: Reports: No Symptoms Cardiovascular: Reports: No Symptoms Gastrointestinal: Reports: No Symptoms Genitourinary: Reports: No Symptoms Musculoskeletal: Reports: No Symptoms Skin: Reports: No Symptoms Neurological: Reports: No Symptoms Psychiatric: Reports: No Symptoms - Patient Data Vital Signs - Most Recent: Last Vital Signs Temp 36.1 C 05/24/19 07:25 Pulse 87 05/24/19 08:00 Resp 17 05/24/19 08:00 BP 98/50 L 05/24/19 07:25 Pulse Ox 97 05/24/19 08:00 Weight - Most Recent: 92.533 kg I&O - Last 24 Hours: Intake & Output 05/23/19 05/24/19 05/24/19 22:59 06:59 14:59 Intake Total 500 Output Total 800 2950 Balance -300 -2950 Lab Results - Last 24 Hours: Laboratory Results - last 24 hr 05/23/19 05/23/19 05/24/19 Range/Units 08:28 08:29 06:00 Hgb 9.0 L (12.0-16.0) g/dL Hct 27.4 L (36.0-46.0) % Cord ABG pH 7.279 7.264 (7.18-7.38) Cord ABG Base Excess -3 -3 (-10--2) Cord VBG pH 7.366 7.361 (7.25-7.45) Cord VBG Base Excess -3 -2 (-10--2) Med Orders - Current: Current Medications Acetaminophen (Tylenol Extra Strength) 500 mg PO Q4H PRN PRN Reason: Pain Acetaminophen (Tylenol Extra Strength) 1,000 mg PO Q4H PRN PRN Reason: Pain Benzocaine/Menthol (Dermoplast Pain Relief 20%-0.5% [place]) 78 gm TOP ASDIRECTED PRN PRN Reason: Perineal Comfort Measure Bisacodyl (Dulcolax) 10 mg RECTAL ONETIME PRN PRN Reason: Constipation Butorphanol Tartrate (Stadol) 1 mg IVPUSH Q1H PRN PRN Reason: Pain Carboprost Tromethamine (Hemabate Ds) 250 mcg IM ASDIRECTED PRN PRN Reason: Post Hemorrhage Diphenhydramine HCl (Benadryl) 25 mg IVPUSH Q4H PRN PRN Reason: Itching Stop: 05/24/19 09:42 Last Admin: 05/23/19 10:40 Dose: 25 mg Docusate Sodium (Colace) 100 mg PO BID PRN PRN Reason: Constipation Last Admin: 05/23/19 22:24 Dose: 100 mg Emollient Ointment (Lansinoh Hpa) 0 gm TOP ASDIRECTED PRN PRN Reason: Sore Nipples Last Admin: 05/24/19 04:42 Dose: 7 gm Fentanyl (Sublimaze) 50 mcg IVPUSH Q1H PRN PRN Reason: Pain (severe 7-10) Lactated Ringer's (Ringers, Lactated) 1,000 mls @ 150 mls/hr IV ASDIRECTED [facility] Last Admin: 05/23/19 10:05 Dose: 150 mls/hr Lactated Ringer's (Ringers, Lactated) 1,000 mls @ 500 mls/hr IV BOLUS [facility] Last Admin: 05/23/19 07:59 Dose: 500 mls/hr Oxytocin/Sodium Chloride (Oxytocin 30 Unit/500 Ml-Ns) 30 unit in 500 mls @ 999 mls/hr IV TITRATE [facility] Last Admin: 05/23/19 09:53 Dose: 999 mls/hr Oxytocin/Sodium Chloride (Oxytocin 30 Unit/500 Ml-Ns) 30 unit in 500 mls @ 250 mls/hr IV TITRATE [facility] Tranexamic Acid 1,000 mg/ (Sodium Chloride) 110 mls @ 660 mls/hr IV ONETIME PRN PRN Reason: Bleeding Last Admin: 05/23/19 10:00 Dose: 660 mls/hr Ibuprofen (Motrin) 400 mg PO Q4H PRN PRN Reason: Pain Ibuprofen (Motrin) 800 mg PO Q6H PRN PRN Reason: Pain Ketorolac Tromethamine (Toradol) 30 mg IVPUSH Q6H [facility] Stop: 05/28/19 10:28 Last Admin: 05/24/19 04:33 Dose: 30 mg Lidocaine HCl (Xylocaine 1%) 50 ml INJECT ONETIME PRN PRN Reason: Laceration repair Methylergonovine Maleate (Methergine) 0.2 mg IM ASDIRECTED PRN PRN Reason: Post Hemorrhage Misoprostol (Cytotec) 200 mcg PO ONETIME PRN PRN Reason: Post Hemorrhage Nalbuphine HCl (Nubain) 10 mg IVPUSH Q1H PRN PRN Reason: Pain (severe 7-10) Nalbuphine HCl (Nubain) 5 mg IVPUSH ASDIRECTED PRN PRN Reason: Itching Last Admin: 05/23/19 12:10 Dose: 5 mg Naloxone HCl (Narcan) 0.1 mg IVPUSH ONETIME PRN PRN Reason: Respiratory Depression Stop: 05/24/19 09:42 Ondansetron HCl (Zofran) 4 mg IVPUSH Q6H PRN PRN Reason: Nausea Oxycodone HCl (Oxycodone) 5 mg PO Q2H PRN PRN Reason: Pain Oxycodone/Acetaminophen (Percocet 325-5 Mg) 2 tab PO Q6H PRN PRN Reason: Pain (moderate 4-6) Sodium Chloride (Saline Flush) 10 ml FLUSH ASDIRECTED PRN PRN Reason: Keep Vein Open Sodium Chloride (Saline Flush) 2.5 ml FLUSH ASDIRECTED PRN PRN Reason: Keep Vein Open Sodium Chloride (Normal Saline) 10 ml IV ASDIRECTED PRN PRN Reason: IV Use Sterile Water (Sterile Water For Irrigation) 1,000 ml IRR ASDIRECTED PRN PRN Reason: delivery Witch Iris (Tucks) 1 pad TOP ASDIRECTED PRN PRN Reason: comfort care Discontinued Medications Cefazolin Sodium (Ancef) Confirm Administered Dose 2 gm .ROUTE .STK-MED ONE Stop: 05/23/19 07:33 Citric Acid/Sodium Citrate (Bicitra Solution) 30 ml PO ONETIME ONE Stop: 05/23/19 05:52 Ephedrine Sulfate (Ephedrine Sulfate) Confirm Administered Dose 50 mg .ROUTE .STK-MED ONE Stop: 05/23/19 07:11 Sodium Chloride (Normal Saline) Confirm Administered Dose 20 mls @ as directed .ROUTE .STK-MED ONE Stop: 05/23/19 07:20 Cefazolin Sodium/Dextrose 2 gm (/ Premix) 50 mls @ 100 mls/hr IV ONETIME ONE Stop: 05/23/19 07:57 Sodium Chloride (Normal Saline) Confirm Administered Dose 20 mls @ as directed .ROUTE .STK-MED ONE Stop: 05/23/19 07:33 Sodium Chloride (Normal Saline) Confirm Administered Dose 100 mls @ as directed .ROUTE .STK-MED ONE Stop: 05/23/19 10:38 Ketorolac Tromethamine (Toradol) Confirm Administered Dose 30 mg .ROUTE .STK- MED ONE Stop: 05/23/19 10:09 Last Admin: 05/23/19 10:13 Dose: 30 mg Morphine Sulfate (Duramorph Pf) Confirm Administered Dose 10 mg .ROUTE .STK-MED ONE Stop: 05/23/19 07:11 Octyl Cyanoacrylate (Dermabond Advance) Confirm Administered Dose 1 applic .ROUTE .STK-MED ONE Stop: 05/23/19 08:50 Ondansetron HCl (Zofran) Confirm Administered Dose 4 mg .ROUTE .STK-MED ONE Stop: 05/23/19 07:11 Oxytocin (Pitocin) Confirm Administered Dose 10 unit .ROUTE .STK-MED ONE Stop: 05/23/19 07:12 Oxytocin (Pitocin) Confirm Administered Dose 20 unit .ROUTE .STK-MED ONE Stop: 05/23/19 07:12 Phenylephrine HCl (Mohan-Synephrine) Confirm Administered Dose 10 mg .ROUTE .STK- MED ONE Stop: 05/23/19 07:11 Tranexamic Acid (Cyklokapron) Confirm Administered Dose 1,000 mg .ROUTE .STK- MED ONE Stop: 05/23/19 10:08 - Infant Interaction Infant Disposition, : in Room with Family Interaction: Holding Feeding: Breastfed Infant; Nursed Well Support Person: - Recovery Exam Fundal Tone: Firm Fundal Level: At Umbilicus Fundal Placement: Midline Lochia Amount: Scant Lochia Color: Rubra/Red Perineum Description: Intact, Minimal Bruising/Swelling Episiotomy/Laceration: None Bladder Status: Voiding Urinary Elimination: Voided - Exam General: Alert, Oriented HEENT: Pupils Equal Neck: Supple Lungs: Clear to Auscultation, Normal Respiratory Effort Cardiovascular: Regular Rate, Regular Rhythm GI/Abdominal Exam: Normal Bowel Sounds, Soft, Non-Tender, No Organomegaly, No Distention, No Abnormal Bruit, No Mass Extremities: Normal Inspection, Non-Tender, No Pedal Edema Skin: Warm, Dry, Intact Wound/Incisions: Dressing Dry and Intact Neurological: No New Focal Deficit Psy/Mental Status: Alert, Normal Affect, Normal Mood - Problem List & Annotations (1) Dichorionic diamniotic twin gestation SNOMED Code(s): 468149618 Code(s): O30.049 - TWIN , DICHORIONIC/DIAMNIOTIC, UNSP TRIMESTER Status: Acute Current Visit: Yes (2) delivery delivered SNOMED Code(s): 432696568 Code(s): O82 - ENCOUNTER FOR DELIVERY WITHOUT INDICATION Status: Acute Priority: High Current Visit: No - Problem List Review Problem List Initiated/Reviewed/Updated: Yes - My Orders Last 24 Hours: My Active Orders 05/23/19 10:25 May Shower [RC] ASDIRECTED Up ad Latricia [RC] ASDIRECTED Acetaminophen [Tylenol Extra Strength] 1,000 mg PO Q4H PRN Acetaminophen [Tylenol Extra Strength] 500 mg PO Q4H PRN Benzocaine/Menthol [Dermoplast Pain Relief 20%-0.5% [place]] 78 gm TOP ASDIRECTED PRN Docusate Sodium [Colace] 100 mg PO BID PRN Ibuprofen [Motrin] 400 mg PO Q4H PRN Ibuprofen [Motrin] 800 mg PO Q6H PRN Lanolin [Lansinoh HPA] See Dose Instructions TOP ASDIRECTED PRN Witch Iris [Tucks] 1 pad TOP ASDIRECTED PRN bisacodyL [Dulcolax] 10 mg RECTAL ONETIME PRN oxyCODONE 5 mg PO Q2H PRN Assess Lochia [WOMSER] Per Unit Routine Assess Uterine Involution [WOMSER] Per Unit Routine Peripheral IV Discontinue [OM.PC] Routine 05/23/19 10:30 Ketorolac [Toradol] 30 mg IVPUSH Q6H 05/23/19 Lunch Regular Diet [DIET] - Assessment Assessment:: POD# 1 after repeat , twin gestation, stable minimal lochia, tolerating regular diet, ambulating without difficulty. is going well. - Plan Plan:: PPD#1 after repeat low transverse . Would like to restart Lexapro. Continue postop care,
[2019-05-24] MEDS: Docusate Sodium 100 MG Cap PO PRN (10:34)
[2019-05-24] MEDS: Escitalopram 10 MG Tab PO SCH (10:35)
[2019-05-24] MEDS: Ibuprofen 800 MG Tab PO PRN (18:30)
[2019-05-24] MEDS: Acetaminophen/oxyCODONE 325-5 MG Tab PO PRN (21:42)
[2019-05-25] MEDS: Ibuprofen 800 MG Tab PO PRN ×2 (01:27→08:03)
[2019-05-25] MEDS: Acetaminophen/oxyCODONE 325-5 MG Tab PO PRN (04:38)
[2019-05-25 04:45] VITALS: PULSE 76
[2019-05-25] MEDS: Ketorolac 30 MG/ML SDV IVPUSH SCH ×5 (05:21→11:28)
--- NOTE | 2019-05-25 08:02 | PCM.PNPP ---
- General Info Date of Service: 05/25/19 Functional Status: Reports: Pain Controlled, Tolerating Diet, Ambulating, Urinating - Review of Systems General: Reports: No Symptoms HEENT: Reports: No Symptoms Pulmonary: Reports: No Symptoms Cardiovascular: Reports: No Symptoms Gastrointestinal: Reports: No Symptoms Genitourinary: Reports: No Symptoms Musculoskeletal: Reports: No Symptoms Skin: Reports: No Symptoms Neurological: Reports: No Symptoms Psychiatric: Reports: No Symptoms - Patient Data Vital Signs - Most Recent: Last Vital Signs Temp 36.6 C 05/25/19 04:45 Pulse 76 05/25/19 04:45 Resp 16 05/25/19 04:45 BP 122/74 05/25/19 04:45 Pulse Ox 95 05/25/19 04:45 Weight - Most Recent: 92.533 kg Med Orders - Current: Current Medications Acetaminophen (Tylenol Extra Strength) 500 mg PO Q4H PRN PRN Reason: Pain Acetaminophen (Tylenol Extra Strength) 1,000 mg PO Q4H PRN PRN Reason: Pain Last Admin: 05/24/19 13:55 Dose: 1,000 mg Benzocaine/Menthol (Dermoplast Pain Relief 20%-0.5% [place]) 78 gm TOP ASDIRECTED PRN PRN Reason: Perineal Comfort Measure Bisacodyl (Dulcolax) 10 mg RECTAL ONETIME PRN PRN Reason: Constipation Butorphanol Tartrate (Stadol) 1 mg IVPUSH Q1H PRN PRN Reason: Pain Carboprost Tromethamine (Hemabate Ds) 250 mcg IM ASDIRECTED PRN PRN Reason: Post Hemorrhage Docusate Sodium (Colace) 100 mg PO BID PRN PRN Reason: Constipation Last Admin: 05/24/19 10:34 Dose: 100 mg Emollient Ointment (Lansinoh Hpa) 0 gm TOP ASDIRECTED PRN PRN Reason: Sore Nipples Last Admin: 05/24/19 04:42 Dose: 7 gm Escitalopram Oxalate (Lexapro) 20 mg PO DAILY [facility] Last Admin: 05/24/19 10:35 Dose: Not Given Fentanyl (Sublimaze) 50 mcg IVPUSH Q1H PRN PRN Reason: Pain (severe 7-10) Lactated Ringer's (Ringers, Lactated) 1,000 mls @ 150 mls/hr IV ASDIRECTED [facility] Last Admin: 05/23/19 10:05 Dose: 150 mls/hr Lactated Ringer's (Ringers, Lactated) 1,000 mls @ 500 mls/hr IV BOLUS REPLACED BY [facility] Last Admin: 05/23/19 07:59 Dose: 500 mls/hr Oxytocin/Sodium Chloride (Oxytocin 30 Unit/500 Ml-Ns) 30 unit in 500 mls @ 999 mls/hr IV TITRATE REPLACED BY [facility] Last Admin: 05/23/19 09:53 Dose: 999 mls/hr Oxytocin/Sodium Chloride (Oxytocin 30 Unit/500 Ml-Ns) 30 unit in 500 mls @ 250 mls/hr IV TITRATE REPLACED BY [facility] Tranexamic Acid 1,000 mg/ (Sodium Chloride) 110 mls @ 660 mls/hr IV ONETIME PRN PRN Reason: Bleeding Last Admin: 05/23/19 10:00 Dose: 660 mls/hr Ibuprofen (Motrin) 400 mg PO Q4H PRN PRN Reason: Pain Ibuprofen (Motrin) 800 mg PO Q6H PRN PRN Reason: Pain Last Admin: 05/25/19 01:27 Dose: 800 mg Ketorolac Tromethamine (Toradol) 30 mg IVPUSH Q6H REPLACED BY [facility] Stop: 05/28/19 10:28 Last Admin: 05/25/19 05:22 Dose: Not Given Lidocaine HCl (Xylocaine 1%) 50 ml INJECT ONETIME PRN PRN Reason: Laceration repair Methylergonovine Maleate (Methergine) 0.2 mg IM ASDIRECTED PRN PRN Reason: Post Hemorrhage Misoprostol (Cytotec) 200 mcg PO ONETIME PRN PRN Reason: Post Hemorrhage Nalbuphine HCl (Nubain) 10 mg IVPUSH Q1H PRN PRN Reason: Pain (severe 7-10) Nalbuphine HCl (Nubain) 5 mg IVPUSH ASDIRECTED PRN PRN Reason: Itching Last Admin: 05/23/19 12:10 Dose: 5 mg Ondansetron HCl (Zofran) 4 mg IVPUSH Q6H PRN PRN Reason: Nausea Oxycodone HCl (Oxycodone) 5 mg PO Q2H PRN PRN Reason: Pain Last Admin: 05/24/19 15:03 Dose: 5 mg Oxycodone/Acetaminophen (Percocet 325-5 Mg) 2 tab PO Q6H PRN PRN Reason: Pain (moderate 4-6) Oxycodone/Acetaminophen (Percocet 325-5 Mg) 1 tab PO Q4H PRN PRN Reason: Pain (moderate 4-6) Last Admin: 05/25/19 04:38 Dose: 1 tab Prenat Multivit/[employer]/Iron/Folic Ac ( Mtr) 1 each PO DAILY [facility] Sodium Chloride (Saline Flush) 10 ml FLUSH ASDIRECTED PRN PRN Reason: Keep Vein Open Sodium Chloride (Saline Flush) 2.5 ml FLUSH ASDIRECTED PRN PRN Reason: Keep Vein Open Sodium Chloride (Normal Saline) 10 ml IV ASDIRECTED PRN PRN Reason: IV Use Sterile Water (Sterile Water For Irrigation) 1,000 ml IRR ASDIRECTED PRN PRN Reason: delivery Damian Simmons (Tucks) 1 pad TOP ASDIRECTED PRN PRN Reason: comfort care Discontinued Medications Cefazolin Sodium (Ancef) Confirm Administered Dose 2 gm .ROUTE .STK-MED ONE Stop: 05/23/19 07:33 Citric Acid/Sodium Citrate (Bicitra Solution) 30 ml PO ONETIME ONE Stop: 05/23/19 05:52 Diphenhydramine HCl (Benadryl) 25 mg IVPUSH Q4H PRN PRN Reason: Itching Stop: 05/24/19 09:42 Last Admin: 05/23/19 10:40 Dose: 25 mg Ephedrine Sulfate (Ephedrine Sulfate) Confirm Administered Dose 50 mg .ROUTE .STK-MED ONE Stop: 05/23/19 07:11 Sodium Chloride (Normal Saline) Confirm Administered Dose 20 mls @ as directed .ROUTE .STK-MED ONE Stop: 05/23/19 07:20 Cefazolin Sodium/Dextrose 2 gm (/ Premix) 50 mls @ 100 mls/hr IV ONETIME ONE Stop: 05/23/19 07:57 Last Admin: 05/24/19 21:08 Dose: Not Given Sodium Chloride (Normal Saline) Confirm Administered Dose 20 mls @ as directed .ROUTE .STK-MED ONE Stop: 05/23/19 07:33 Sodium Chloride (Normal Saline) Confirm Administered Dose 100 mls @ as directed .ROUTE .STK-MED ONE Stop: 05/23/19 10:38 Ketorolac Tromethamine (Toradol) Confirm Administered Dose 30 mg .ROUTE .STK- MED ONE Stop: 05/23/19 10:09 Last Admin: 05/23/19 10:13 Dose: 30 mg Morphine Sulfate (Duramorph Pf) Confirm Administered Dose 10 mg .ROUTE .STK-MED ONE Stop: 05/23/19 07:11 Naloxone HCl (Narcan) 0.1 mg IVPUSH ONETIME PRN PRN Reason: Respiratory Depression Stop: 05/24/19 09:42 Octyl Cyanoacrylate (Dermabond Advance) Confirm Administered Dose 1 applic .ROUTE .STK-MED ONE Stop: 05/23/19 08:50 Ondansetron HCl (Zofran) Confirm Administered Dose 4 mg .ROUTE .STK-MED ONE Stop: 05/23/19 07:11 Oxytocin (Pitocin) Confirm Administered Dose 10 unit .ROUTE .STK-MED ONE Stop: 05/23/19 07:12 Oxytocin (Pitocin) Confirm Administered Dose 20 unit .ROUTE .STK-MED ONE Stop: 05/23/19 07:12 Phenylephrine HCl (Mohan-Synephrine) Confirm Administered Dose 10 mg .ROUTE .STK- MED ONE Stop: 05/23/19 07:11 Tranexamic Acid (Cyklokapron) Confirm Administered Dose 1,000 mg .ROUTE .STK- MED ONE Stop: 05/23/19 10:08 - Interaction Infant Disposition, : in Room with Family Infant Interaction: Holding Infant Infant Feeding: Breastfed Infant; Nursed Well Support Person: - Recovery Exam Fundal Tone: Firm Fundal Level: 1 Fingerbreadths Below Umbilicus Fundal Placement: Midline Lochia Amount: Scant Lochia Color: Rubra/Red Perineum Description: Intact, Minimal Bruising/Swelling Episiotomy/Laceration: None Bladder Status: Voiding Urinary Elimination: Voided - Exam General: Alert, Oriented HEENT: Pupils Equal Neck: Supple Lungs: Clear to Auscultation, Normal Respiratory Effort Cardiovascular: Regular Rate, Regular Rhythm GI/Abdominal Exam: Normal Bowel Sounds, Soft, Non-Tender, No Distention, No Mass Extremities: Normal Inspection, Non-Tender, No Pedal Edema Skin: Warm, Dry, Intact Wound/Incisions: Healing Well Neurological: No New Focal Deficit Psy/Mental Status: Alert, Normal Affect, Normal Mood - Problem List & Annotations (1) Dichorionic diamniotic twin gestation SNOMED Code(s): 755407709 Code(s): O30.049 - TWIN , DICHORIONIC/DIAMNIOTIC, UNSP TRIMESTER Status: Acute Current Visit: Yes (2) delivery delivered SNOMED Code(s): 132223614 Code(s): O82 - ENCOUNTER FOR DELIVERY WITHOUT INDICATION Status: Acute Priority: High Current Visit: No - Problem List Review Problem List Initiated/Reviewed/Updated: Yes - My Orders Last 24 Hours: My Active Orders 05/24/19 09:30 Escitalopram [Lexapro] 20 mg PO DAILY 05/25/19 07:59 Ready for Discharge [RC] PER UNIT ROUTINE 05/25/19 09:00 Vit/FA/Fe Fumarate/Se [ MTR] 1 each PO DAILY - Assessment Assessment:: POD# 2 after repeat , twin gestation, stable minimal lochia, tolerating regular diet, ambulating without difficulty. is going well. Dismiss to home today. - Plan Plan:: PPD#2 after repeat low transverse . Dismiss to home, discharge instructions reviewed.
[2019-05-25] MEDS: Escitalopram 10 MG Tab PO SCH (08:03)
[2019-05-25] MEDS ORDERED: Prenatal Multivitamin and Multimineral with Iron Tab PO SCH (09:00)
[2019-05-25 09:42] VITALS: BP 115/72
== END 2019-05-25 11:20 | disposition home or self-care (01) | DRG 540 ==
LOC: MW.OB 05:41
PROVIDERS: ADMIT Obstetrics & Gynecology; ATTEND Obstetrics & Gynecology
PROC: 10D00Z1 Extraction of Products of Conception, Low, Open Approach (ICD-10-PCS; principal; 2019-05-23)
DX: O34.211 Maternal care for low transverse scar from previous cesarean delivery (principal); O30.043 Twin pregnancy, dichorionic/diamniotic, third trimester; Z90.89 Acquired absence of other organs; Z79.899 Other long term (current) drug therapy; Z3A.38 38 weeks gestation of pregnancy; Z37.0 Single live birth
CPT/HCPCS: 01961; 36415; 51702; 59025; 82803; 85014; 85018; 85027; 86592; 86850; 86900; 86901; 88307; A9270-GY; J0690; J1200; J1885; J2270; J2300; J2370; J2405; J2590; J7050; J7120

== ENCOUNTER 2023-03-04 04:38 | Inpatient (IN) | payer BC ==
[2023-03-04] MEDS ORDERED: Sodium Chloride 0.9% 10 ML Syringe FLUSH PRN (04:45)
[2023-03-04] MEDS ORDERED: Oxytocin/0.9 % Sodium Chloride 30 UNIT/500 ML BAG IV SCH ×2 (04:45→08:30)
[2023-03-04] MEDS ORDERED: Sodium Chloride 0.9% 2.5 ML Syringe FLUSH PRN (04:45)
[2023-03-04] MEDS ORDERED: Lactated Ringers 1,000 ML IV SCH ×2 (04:45→08:30)
[2023-03-04] MEDS ORDERED: Citric Acid/Sodium Citrate Solution 30 ML Cup PO ONE (04:45)
[2023-03-04] MEDS ORDERED: ceFAZolin 2 GM in Sodium Chloride 0.9% 50 ML IV ONE (04:45)
[2023-03-04] MEDS ORDERED: Sodium Chloride 0.9% 20 ML SDV IV PRN (04:45)
[2023-03-04 05:47] LABS: HEMOGLOBIN 11.7 g/dL (12.0-16.0); MEAN CORPUSCULAR HEMOGLOBIN 32.7 pg (28.0-32.0); MEAN CORPUSCULAR HGB CONC 36.6 g/dL (32.0-36.0); MEAN CORPUSCULAR VOLUME 89.4 fL (83.0-99.0); MEAN PLATELET VOLUME 11.3 fL (9.4-12.3); PLATELET COUNT,PLT 110 K/uL (150-400); RED BLOOD CELL COUNT 3.58 M/uL (4.10-5.30); WHITE BLOOD CELL COUNT,WBC 7.31 K/uL (3.9-11.3)
[2023-03-04] MEDS ORDERED: Ropivacaine 0.5% 5 MG/ML 30 ML SDV ONE (06:10)
[2023-03-04] MEDS ORDERED: Ketorolac 30 MG/ML SDV ONE (06:10)
[2023-03-04] MEDS ORDERED: Phenylephrine 1% 10 MG/ML SDV ONE (06:10)
[2023-03-04] MEDS ORDERED: Oxytocin 10 Units/1 ML SDV ONE (06:10)
[2023-03-04] MEDS ORDERED: ceFAZolin 1 GM Vial ONE (06:10)
[2023-03-04] MEDS ORDERED: ePHEDrine 50 MG/ML SDV ONE (06:10)
[2023-03-04] MEDS ORDERED: Dexamethasone 4 MG/ML 5 ML MDV ONE (06:10)
[2023-03-04] MEDS ORDERED: Water For Injection, Sterile 20 ML ONE (06:10)
[2023-03-04] MEDS ORDERED: Dexmedetomidine 200 MCG/2 ML SDV ONE (06:10)
[2023-03-04] MEDS ORDERED: Lidocaine 2% 5 ML SDV ONE (06:10)
[2023-03-04] MEDS ORDERED: Tranexamic Acid 1,000 MG/10 ML Vial ONE (06:10)
[2023-03-04] MEDS ORDERED: Ondansetron 4 MG/2 ML SDV ONE (06:10)
[2023-03-04] MEDS ORDERED: droPERidol 5 MG/2 ML SDV ONE (06:10)
[2023-03-04] MEDS ORDERED: fentaNYL 100 MCG/2 ML SDV ONE (06:11)
[2023-03-04] MEDS ORDERED: Morphine PF 10 MG/10 ML SDV ONE (06:11)
[2023-03-04] MEDS ORDERED: Acetaminophen/oxyCODONE 325-5 MG Tab PO PRN (06:29)
[2023-03-04] MEDS ORDERED: Ondansetron 4 MG/2 ML SDV IVPUSH PRN ×3 (06:29→08:18)
[2023-03-04] MEDS ORDERED: fentaNYL 50 MCG/ML SDV IVPUSH PRN (06:29)
[2023-03-04] MEDS ORDERED: ePHEDrine 50 MG/ML SDV IVPUSH PRN (06:29)
[2023-03-04] MEDS ORDERED: Albuterol 0.083% 2.5 MG/3 ML Neb Soln NEB PRN (06:29)
[2023-03-04] MEDS ORDERED: Naloxone 0.4 MG/ML SDV IVPUSH PRN (06:29)
[2023-03-04] MEDS ORDERED: Morphine 2 MG/ML SYRINGE IVPUSH PRN (06:29)
[2023-03-04] MEDS ORDERED: Metoclopramide 10 MG/2 ML SDV IVPUSH PRN (06:29)
[2023-03-04] MEDS ORDERED: fentaNYL 100 MCG/2 ML SDV IVPUSH PRN (06:29)
[2023-03-04] MEDS ORDERED: HYDROmorphone 1 MG/ML Syringe IVPUSH PRN (06:29)
[2023-03-04] MEDS ORDERED: diphenhydrAMINE 50 MG/ML SDV IVPUSH PRN ×2 (06:29→08:18)
[2023-03-04] MEDS ORDERED: droPERidol 5 MG/2 ML SDV IVPUSH PRN (06:29)
[2023-03-04] MEDS ORDERED: Calcium Chloride 10% 1 GM/10 ML Syringe ONE (07:00)
[2023-03-04] MEDS ORDERED: oxyCODONE 5 MG Tab PO PRN (08:18)
[2023-03-04] MEDS ORDERED: Bisacodyl 10 MG Supp RECTAL PRN (08:18)
[2023-03-04] MEDS ORDERED: Misoprostol 200 MCG Tab RECTAL PRN (08:18)
[2023-03-04] MEDS ORDERED: Oxytocin 10 Units/1 ML SDV IM PRN (08:18)
[2023-03-04] MEDS ORDERED: Lanolin 100% Cream 7 GM Tube TOP PRN (08:18)
[2023-03-04] MEDS ORDERED: Methylergonovine 0.2 MG/1 ML Amp IM PRN (08:18)
[2023-03-04] MEDS: Ketorolac 30 MG/ML SDV IVPUSH SCH ×3 (08:30→20:52)
[2023-03-04 08:45] LABS: PH,UMBILICAL ARTERIAL 7.22 (7.18-7.38); PH,UMBILICAL VENOUS 7.272 (7.25-7.45)
[2023-03-04 09:07] LABS: PH,UMBILICAL ARTERIAL 7.201 (7.18-7.38); PH,UMBILICAL VENOUS 7.261 (7.25-7.45)
[2023-03-04] MEDS: Acetaminophen 1,000 MG in Premix Bag 1 BAG IV SCH ×3 (10:00→22:34)
[2023-03-04] MEDS: Docusate Sodium 100 MG Cap PO SCH ×2 (10:02→20:51)
[2023-03-05] MEDS: Ketorolac 30 MG/ML SDV IVPUSH SCH ×2 (02:37→08:51)
[2023-03-05] MEDS: Acetaminophen 1,000 MG in Premix Bag 1 BAG IV SCH (04:47)
[2023-03-05 06:52] LABS: HEMATOCRIT 25.5 % (37.0-47.0); HEMOGLOBIN 9.4 g/dL (12.0-16.0)
[2023-03-05] MEDS: Docusate Sodium 100 MG Cap PO SCH (08:52)
[2023-03-05] MEDS: Ibuprofen 800 MG Tab PO PRN ×2 (09:00→17:18)
[2023-03-05] MEDS: Acetaminophen 500 MG Tab PO PRN ×2 (14:52→20:47)
[2023-03-05] MEDS: Ferrous Sulfate 325 MG Tab PO SCH ×2 (15:36→17:18)
[2023-03-06] MEDS: Docusate Sodium 100 MG Cap PO SCH ×2 (01:29→10:43)
[2023-03-06] MEDS: Ibuprofen 800 MG Tab PO PRN ×2 (01:37→10:18)
[2023-03-06 07:07] LABS: HEMOGLOBIN 10.3 g/dL (12.0-16.0); MEAN CORPUSCULAR HEMOGLOBIN 32.1 pg (28.0-32.0); MEAN CORPUSCULAR HGB CONC 35.5 g/dL (32.0-36.0); MEAN CORPUSCULAR VOLUME 90.3 fL (83.0-99.0); MEAN PLATELET VOLUME 11.3 fL (9.4-12.3); PLATELET COUNT,PLT 104 K/uL (150-400); RED BLOOD CELL COUNT 3.21 M/uL (4.10-5.30)
[2023-03-06] MEDS: Ferrous Sulfate 325 MG Tab PO SCH (11:55)
== END 2023-03-06 12:20 | disposition home or self-care (01) | DRG 540 ==
LOC: MW.OB 04:38
PROVIDERS: ADMIT Obstetrics & Gynecology; ATTEND Obstetrics & Gynecology
PROC: 10D00Z1 Extraction of Products of Conception, Low, Open Approach (ICD-10-PCS; principal; 2023-03-04 07:00)
DX: O34.211 Maternal care for low transverse scar from previous cesarean delivery (principal); O30.043 Twin pregnancy, dichorionic/diamniotic, third trimester; Z37.2 Twins, both liveborn; F34.1 Dysthymic disorder; Z3A.37 37 weeks gestation of pregnancy; O99.344 Other mental disorders complicating childbirth; G43.909 Migraine, unspecified, not intractable, without status migrainosus; O99.354 Diseases of the nervous system complicating childbirth; O40.3XX1 Polyhydramnios, third trimester, fetus 1
CPT/HCPCS: 36415; 59025; 82803; 85014; 85018; 85027; 86592; 86850; 86900; 86901; 86902; 86920; 86921; 86922; A9270-GY; J0131; J0690; J1100; J1790; J1885; J2274; J2371; J2405; J2590; J2795; J3010; J3490